=== PATIENT | male | born 1945 | race Caucasian/White ===

== ENCOUNTER 2023-07-12 20:00 | Inpatient (IN) | payer OTHER, SELFPAY ==
[2023-07-12] VITALS (7 sets, daily range): BP systolic 93–149; BP diastolic 47–69; PULSE 77–81; BMI 25.0
[2023-07-12 15:15] LABS: % Basophils 0.4 % (0-2); % Immature Granulocytes 0.6 % (0-0.5); % Lymphocytes 5.8 % (20.5-51.1); % Monocytes 11.6 % (1.7-9.3); % Neutrophils 81.6 % (42.2-75.2); Absolute Immature Granulocytes 0.1 10^3/uL (0-0.05); Absolute Lymphocytes 0.5 10^3/uL (1.2-3.4); Hematocrit 35.8 % (39.0-52.0); Hemoglobin 12.3 g/dL (13.0-18.0); Mean Corp Hgb Conc. 34.4 g/dL (33.0-37.0); Mean Corpuscular Hgb 33.3 pg (27.0-31.0); Mean Platelet Volume 8.9 fL (7.4-10.4); Nucleated Red Blood Cells % 0 % (-); Platelet Count 183 10^3/uL (130-400); Red Blood Cell Count 3.69 10^6/uL (4.70-6.10); Red Cell Dist. Width 14.6 % (11.5-14.5); White Blood Cell Count 8.6 10^3/uL (4.8-10.8)
[2023-07-12 15:23] LABS: Lactic Acid 1.6 mmol/L (0.7-2.0)
[2023-07-12 15:24] LABS: ALT (SGPT) 22 U/L (0-50); AST (SGOT) 38 U/L (17-59); Albumin 3.7 g/dl (3.5-5.0); Alkaline Phosphatase 155 U/L (38-126); Blood Urea Nitrogen 21 mg/dl (9-20); Calcium 9.3 mg/dl (8.4-10.2); Carbon Dioxide 28 mmol/L (22-30); Chloride 103 mmol/L (98-107); Estimated Creatinine Clearance 58 ml/min; Glucose 275 mg/dl (70-99); Sodium 134 mmol/L (135-145); Total Bilirubin 1.5 mg/dl (0.2-1.3); Total Protein 6.2 g/dl (6.3-8.2); eGFR > 60.00
[2023-07-12 15:29] LABS: COVID-19 Antigen Negative (Negative)
[2023-07-12 15:32] LABS: NT-proBNP 251 pg/ml
[2023-07-12] MEDS: TYLENOL 650 MG PO (15:52)
--- NOTE | 2023-07-12 17:06 | ED.GENMED ---
History of Present Illness
<Jocelyn Aponte PA-C - Last Filed: 07/16/23 11:51>
General
Chief Complaint: Weakness
Source: patient and records
Exam Limitations: none
Time Seen by Provider: 07/12/23 15:20
Nursing documentation reviewed up to this point in time: agreed with
Travel History
Have you had any contact with someone who has COVID-19?: No
Do you have any symptoms of coronavirus? Fever > 100 degrees, chills, cough, shortness of breath, sore throat, loss of taste or smell, muscle aches, or headache?: No
History of Present Illness
History of Present Illness:
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
Patient states that he started to feel fatigued the beginning of the week, and as the week progressed, he started to feel weakness, especially with standing, and started to have fevers and chills. He did not take his temperature not sure if he had
a fever at the time. He states that he is also noticed some swelling in his legs, however he has no history of heart failure. His oncologist was concerned about possible blood clots in his legs and wanted him to get an ultrasound done of his lower
extremities. Patient states that he has some coughing, however he always has a dry cough with COPD and denies any sputum production. He also notes some mild shortness of breath but this is his baseline he states. He is not on any oxygen at home
for COPD. Patient states that his appetite has been okay has had had no nausea, vomiting, diarrhea, constipation, abdominal pain.
Past History
<Jocelyn Aponte PA-C - Last Filed: 07/16/23 11:51>
Past History
ED Past Medical History: Cancer, HTN, IDDM and Other (Sarcoma high blood pressure rheumatic fever DM [place]�)
ED Past Surgical History: Appendectomy and Other
Social History
Tobacco: Former smoker
Alcohol: Occasional
Drug: None
Personal:
Living: with family
Employment: Retired
Family History
Family History: Other (CAD, hypertension, diabetes)
Review of Systems
<Jocelyn Aponte PA-C - Last Filed: 07/16/23 11:51>
Review of Systems
All Other Systems: ROS reviewed and negative except as documented in HPI and ROS
Phy Exam
<Jocelyn Aponte PA-C - Last Filed: 07/16/23 11:51>
Physical Exam
Physical Exam:
Vitals: Patient is 85% on room air, patient febrile and tachycardic
General: Patient is ill-appearing
Skin: Skin is hot to the touch, no rashes or lesions
Head: normocephalic, atraumatic
Eyes: PERRLA, EOMs intact.
Neck: no cervical lymphadenopathy
Cardiac: Tachycardia, no murmurs
Peripheral Vascular: no lower extremity edema
Pulm: Increased respiratory effort, increased respiratory rate, scattered wheezes heard on exam
Abdomen: No abdominal tenderness to palpation, no organomegaly
Neuro: CN II-XII intact, AAOx3 .
Course
<Jocelyn Aponte PA-C - Last Filed: 07/16/23 11:51>
Orders/Labs/Results
Orders:
Orders
07/12/23 14:53
Electrocardiogram (*1) Urgent
Reason for Study: Fatigue / Weakness
EKG- Treatment ONCE
07/12/23 14:58
COVID-19 Antigen Urgent
Source: Nasal Swab
Complete Blood Count/With Diff Urgent
Comprehensive Metabolic Panel Urgent
Lactic Acid Urgent
Blood Culture Urgent
[facility] Source: Blood/Venous
Specimen Description:
Influenza A+B Rapid Molecular Urgent
[facility]Y Source: Nasal Swab
Specimen Description:
07/12/23 14:59
Pro-BNP [NT-proBNP] Urgent
07/12/23 15:48
Acetaminophen [Tylenol] 650 mg PO NOW STA
CR Chest - 2 Views Urgent
Comment:
Reason For Exam: shortness of breath, cough
07/12/23 15:52
US Legs, Bilateral [US Periph Venous LOWER Ext Mervin] Urgent
Comment:
Reason For Exam: lower extremeity edema, pain
07/12/23 17:14
Ibuprofen [Motrin] 400 mg PO NOW STA
07/12/23 17:55
Urinalysis Reflex To Culture Urgent
Date Specimen was Collected: 07/12/23
Time Specimen was Collected: 17:54
Urine Microscopic Reflex Cult Urgent
Urine Culture Urgent
[facility] Source: U
Specimen Description:
Date Specimen was Collected: 07/12/23
Time Specimen was Collected: 17:54
07/12/23 18:31
0.9% Sodium Chloride 250 ml [Nss] 250 ml IV BOLUS
Cefepime HCl [Maxipime] 1,000 mg IV NOW STA
07/12/23 18:36
Sterile Water [Sterile Water For Injection] 10 ml .ROUTE .[facility]
07/12/23 18:38
0.9% Sodium Chloride 500 ml [Nss] 500 ml IV BOLUS
07/12/23 19:30
Admit/Transfer Patient As Directed
Co-Sign Provider:
Level of Care: Inpatient admission
Assign to:: Telemetry
Physician / Group: Erasmo
Diagnosis: UTI, Sepsis
Reason for Telemetry: Arrhythmia
Date to Stop Telemetry: 07/15/23
Time to Stop Telemetry: 11:00
Reason for Hospitalization: UTI, Sepsis
Expected length of stay greater than two midnights?: Yes
ELOS- Estimated Length of Stay in days: 3
I certify the patient meets the requirements for IP care: Yes
07/12/23 19:31
Code Status As Directed
Resuscitation Status: Full Code
07/12/23 21:34
0.9% Sodium Chloride 1000 ml [Nss] 1,000 ml IV 125 mls/hr
Acetaminophen [Tylenol] 650 mg PO Q4HPRN PRN
Budesonide [Pulmicort] 0.5 mg INH R BID
Dextrose 50%-Water [Dextrose 50% Syringe] 12.5 grams IV [id number] PRN
Docusate Sodium [Colace] 100 mg PO BID
Glucagon [GlucaGen] 1 mg IM PRN PRN
Ipratropium/Albuterol Sulfate [Duoneb] 3 ml INH R Q4HPRN PRN
Polyethylene Glycol Powder [Miralax] 17 grams PO DAILYPRN PRN
07/12/23 21:34
Activity As Directed
Activity Level: Ambulate
With Assistance
Bedside Glucose Monitoring As Directed
Frequency: AC&HS
Comment: Change to q6h if pt on TPN, tube feeding or not eating
Bladder Scan As Directed
Follow Bladder Retention/Intermittent Cath Algorithm?: Yes
PRN if no void in __ hours: 6
Frequency: Per Retention Algorithm
If Bladder Scan Result >: 400
then:: Straight cath
I/O [Intake/ Output] As Directed
Frequency: Per unit guidelines
Orthostatic Vital Signs As Directed
Orthostatic VS Frequency: BID
Straight Cath As Directed
Frequency: Per Retention Algorithm
Additional Instructions: straight cath as needed per acute urinary retention algorithm for 24 hrs
Additional Instructions: for bladder scan greater than 400 mL
Vital Signs As Directed
Frequency: Per unit guidelines
Oxygen Therapy [O2 Therapy] [RESP] Routine
Titrate/Wean O2 to maintain O2 sat greater than (%): 94
Rx Incentive Spirometry [RESP] Routine
Frequency: q1h while awake
Ot Eval And Treat Routine
PT Consult [Pt Eval And Treat] Routine
Activity Level: Ambulate
With Assistance
DX Deep Vein Thrombosis Video Routine
07/12/23 21:54
Blood Culture Q1M
[facility]Y Source: Blood/Venous
Specimen Description:
07/12/23 22:00
CefTRIAXone [Rocephin] 1,000 mg IV Q24H
Gabapentin [Neurontin] 100 mg PO TID
Sennosides [Senokot] 17.2 mg PO HS
07/12/23 22:58
Blood Culture Q1M
CASEY Source: Blood/Venous
Specimen Description:
07/13/23 Breakfast
2000 calorie (17 carb) Diabetic
At Your Request: Limited Participation
07/13/23 06:14
Basic Metabolic Panel IN AM
Complete Blood Count/No Diff IN AM
Glycohemoglobin (HgbA1c) IN AM
07/13/23 07:30
Insulin Aspart Corrective Low [Novolog Flexpen-Low Resistance] See Protocol SC AC
07/13/23 08:00
Tamsulosin [Flomax] 0.4 mg PO DAILY
07/13/23 18:00
Enoxaparin Sodium [Lovenox] 40 mg SC QPM
07/15/23 11:00
DC Protocol for Telemetry ONCE
Abnormal Lab Results
07/12/23 07/12/23
14:58 17:55
RBC 3.69 L 10^6/uL
(4.70-6.10)
Hgb 12.3 L g/dL
(13.0-18.0)
Hct 35.8 L %
(39.0-52.0)
MCV 97.0 H fL
(80.0-94.0)
MCH 33.3 H pg
(27.0-31.0)
RDW 14.6 H %
(11.5-14.5)
Abs Immat Gran (auto) 0.1 H 10^3/uL
(0-0.05)
Absolute Neuts (auto) 7.0 H 10^3/uL
(1.4-6.5)
Absolute Lymphs (auto) 0.5 L 10^3/uL
(1.2-3.4)
Absolute Monos (auto) 1.0 H 10^3/uL
(0.1-0.6)
Immature Gran % 0.6 H %
(0-0.5)
Neutrophils % 81.6 H %
(42.2-75.2)
Lymphocytes % 5.8 L %
(20.5-51.1)
Monocytes % 11.6 H %
(1.7-9.3)
Sodium 134 L mmol/L
(135-145)
BUN 21 H mg/dl
(9-20)
Glucose 275 H mg/dl
(70-99)
Total Bilirubin 1.5 H mg/dl
(0.2-1.3)
Alkaline Phosphatase 155 H U/L
(38-126)
Total Protein 6.2 L g/dl
(6.3-8.2)
Urine Ketones Trace A
(Negative)
Ur Occult Blood Reflex Trace A
(Negative)
Urine Nitrite (Reflex) Positive A
(Negative)
Leukocyte Esterase Rfl 1+ A
(Negative)
Urine WBC (Reflex) 40-50 A /HPF
(0-5)
Urine Bacteria (Reflex) Many A
(Negative)
Urine Glucose 3+ A
(Negative)
07/12/23 14:58
07/12/23 14:58
Vital Signs
Initial and Last Documented VS:
Initial Vital Signs
Pulse Resp Pulse Ox
113 29 85
07/12/23 14:52 07/12/23 14:52 07/12/23 14:52
Last Documented Vital Signs
Temp Pulse Resp BP Pulse Ox
98 F 74 16 139/69 96
07/16/23 07:48 07/16/23 07:48 07/16/23 07:48 07/16/23 07:48 07/16/23 07:48
<Real Hernandez, DO - Last Filed: 07/17/23 01:17>
Orders/Labs/Results
Orders:
Orders
07/12/23 14:53
Electrocardiogram (*1) Urgent
Reason for Study: Fatigue / Weakness
EKG- Treatment ONCE
07/12/23 14:58
COVID-19 Antigen Urgent
Source: Nasal Swab
Complete Blood Count/With Diff Urgent
Comprehensive Metabolic Panel Urgent
Lactic Acid Urgent
Blood Culture Urgent
[facility]Y Source: Blood/Venous
Specimen Description:
Influenza A+B Rapid Molecular Urgent
CASEY Source: Nasal Swab
Specimen Description:
07/12/23 14:59
Pro-BNP [NT-proBNP] Urgent
07/12/23 15:48
Acetaminophen [Tylenol] 650 mg PO NOW STA
CR Chest - 2 Views Urgent
Comment:
Reason For Exam: shortness of breath, cough
07/12/23 15:52
US Legs, Bilateral [US Periph Venous LOWER Ext Mervin] Urgent
Comment:
Reason For Exam: lower extremeity edema, pain
07/12/23 17:14
Ibuprofen [Motrin] 400 mg PO NOW STA
07/12/23 17:55
Urinalysis Reflex To Culture Urgent
Date Specimen was Collected: 07/12/23
Time Specimen was Collected: 17:54
Urine Microscopic Reflex Cult Urgent
Urine Culture Urgent
CASEY Source: U
Specimen Description:
Date Specimen was Collected: 07/12/23
Time Specimen was Collected: 17:54
07/12/23 18:31
0.9% Sodium Chloride 250 ml [Nss] 250 ml IV BOLUS
Cefepime HCl [Maxipime] 1,000 mg IV NOW STA
07/12/23 18:36
Sterile Water [Sterile Water For Injection] 10 ml .ROUTE .[facility]
07/12/23 18:38
0.9% Sodium Chloride 500 ml [Nss] 500 ml IV BOLUS
07/12/23 19:30
Admit/Transfer Patient As Directed
Co-Sign Provider:
Level of Care: Inpatient admission
Assign to:: Telemetry
Physician / Group: Erasmo
Diagnosis: UTI, Sepsis
Reason for Telemetry: Arrhythmia
Date to Stop Telemetry: 07/15/23
Time to Stop Telemetry: 11:00
Reason for Hospitalization: UTI, Sepsis
Expected length of stay greater than two midnights?: Yes
ELOS- Estimated Length of Stay in days: 3
I certify the patient meets the requirements for IP care: Yes
07/12/23 19:31
Code Status As Directed
Resuscitation Status: Full Code
07/12/23 21:34
0.9% Sodium Chloride 1000 ml [Nss] 1,000 ml IV 125 mls/hr
Acetaminophen [Tylenol] 650 mg PO Q4HPRN PRN
Budesonide [Pulmicort] 0.5 mg INH R BID
Dextrose 50%-Water [Dextrose 50% Syringe] 12.5 grams IV [id number] PRN
Docusate Sodium [Colace] 100 mg PO BID
Glucagon [GlucaGen] 1 mg IM PRN PRN
Ipratropium/Albuterol Sulfate [Duoneb] 3 ml INH R Q4HPRN PRN
Polyethylene Glycol Powder [Miralax] 17 grams PO DAILYPRN PRN
07/12/23 21:34
Activity As Directed
Activity Level: Ambulate
With Assistance
Bedside Glucose Monitoring As Directed
Frequency: AC&HS
Comment: Change to q6h if pt on TPN, tube feeding or not eating
Bladder Scan As Directed
Follow Bladder Retention/Intermittent Cath Algorithm?: Yes
PRN if no void in __ hours: 6
Frequency: Per Retention Algorithm
If Bladder Scan Result >: 400
then:: Straight cath
I/O [Intake/ Output] As Directed
Frequency: Per unit guidelines
Orthostatic Vital Signs As Directed
Orthostatic VS Frequency: BID
Straight Cath As Directed
Frequency: Per Retention Algorithm
Additional Instructions: straight cath as needed per acute urinary retention algorithm for 24 hrs
Additional Instructions: for bladder scan greater than 400 mL
Vital Signs As Directed
Frequency: Per unit guidelines
Oxygen Therapy [O2 Therapy] [RESP] Routine
Titrate/Wean O2 to maintain O2 sat greater than (%): 94
Rx Incentive Spirometry [RESP] Routine
Frequency: q1h while awake
Ot Eval And Treat Routine
PT Consult [Pt Eval And Treat] Routine
Activity Level: Ambulate
With Assistance
DX Deep Vein Thrombosis Video Routine
07/12/23 21:54
Blood Culture Q1M
[facility] Source: Blood/Venous
Specimen Description:
07/12/23 22:00
CefTRIAXone [Rocephin] 1,000 mg IV Q24H
Gabapentin [Neurontin] 100 mg PO TID
Sennosides [Senokot] 17.2 mg PO HS
07/12/23 22:58
Blood Culture Q1M
[facility]Y Source: Blood/Venous
Specimen Description:
07/13/23 Breakfast
2000 calorie (17 carb) Diabetic
At Your Request: Limited Participation
07/13/23 06:14
Basic Metabolic Panel IN AM
Complete Blood Count/No Diff IN AM
Glycohemoglobin (HgbA1c) IN AM
07/13/23 07:30
Insulin Aspart Corrective Low [Novolog Flexpen-Low Resistance] See Protocol SC AC
07/13/23 08:00
Tamsulosin [Flomax] 0.4 mg PO DAILY
07/13/23 18:00
Enoxaparin Sodium [Lovenox] 40 mg SC QPM
07/15/23 11:00
DC Protocol for Telemetry ONCE
Abnormal Lab Results
07/12/23 07/12/23
14:58 17:55
RBC 3.69 L 10^6/uL
(4.70-6.10)
Hgb 12.3 L g/dL
(13.0-18.0)
Hct 35.8 L %
(39.0-52.0)
MCV 97.0 H fL
(80.0-94.0)
MCH 33.3 H pg
(27.0-31.0)
RDW 14.6 H %
(11.5-14.5)
Abs Immat Gran (auto) 0.1 H 10^3/uL
(0-0.05)
Absolute Neuts (auto) 7.0 H 10^3/uL
(1.4-6.5)
Absolute Lymphs (auto) 0.5 L 10^3/uL
(1.2-3.4)
Absolute Monos (auto) 1.0 H 10^3/uL
(0.1-0.6)
Immature Gran % 0.6 H %
(0-0.5)
Neutrophils % 81.6 H %
(42.2-75.2)
Lymphocytes % 5.8 L %
(20.5-51.1)
Monocytes % 11.6 H %
(1.7-9.3)
Sodium 134 L mmol/L
(135-145)
BUN 21 H mg/dl
(9-20)
Glucose 275 H mg/dl
(70-99)
Total Bilirubin 1.5 H mg/dl
(0.2-1.3)
Alkaline Phosphatase 155 H U/L
(38-126)
Total Protein 6.2 L g/dl
(6.3-8.2)
Urine Ketones Trace A
(Negative)
Ur Occult Blood Reflex Trace A
(Negative)
Urine Nitrite (Reflex) Positive A
(Negative)
Leukocyte Esterase Rfl 1+ A
(Negative)
Urine WBC (Reflex) 40-50 A /HPF
(0-5)
Urine Bacteria (Reflex) Many A
(Negative)
Urine Glucose 3+ A
(Negative)
07/12/23 14:58
07/12/23 14:58
Vital Signs
Initial and Last Documented VS:
Initial Vital Signs
Pulse Resp Pulse Ox
113 29 85
07/12/23 14:52 07/12/23 14:52 07/12/23 14:52
Last Documented Vital Signs
Temp Pulse Resp BP Pulse Ox
98 F 74 16 139/69 96
07/16/23 07:48 07/16/23 07:48 07/16/23 07:48 07/16/23 07:48 07/16/23 07:48
<Jocelyn Aponte PA-C - Last Filed: 07/16/23 11:51>
MDM/Problems Addressed
Differential Diagnosis Includes:
Differentials include COPD exacerbation, CHF, pneumonia, influenza, COVID-19, pulmonary embolism
MDM/Problems Addressed:
hypoxia
weakness
fever
Chronic conditions affecting care: DM, HTN, COPD and Cancer
Acute Exacerbation and/or Progression of Chronic Illness: HTN and COPD
<Jocelyn Aponte PA-C - Last Filed: 07/16/23 11:51>
*Radiology
Radiology exam reviewed: preliminary read by ED provider (no acute cardiopulmonary process)
*Pulse Oximetry
Patient hypoxic: yes
*Speech And Language Assistant Interpretation
Rate: normal
Interpretation: normal
Heart Rate: 101
Rhythm: sinus tachycardia
*Critical Care Note
Total Time (30-74mins, 75-104mins- exclusive of procedures): Not Applicable
Data Reviewed
Review of Other/Old Records Reveals: Records (Reviewed ER physician documentation, 04/11/2022, 04/15/2023) and Discharge Summary (Reviewed hospital discharge summary from 04/20/2023)
Source: patient and records
Further Testing Considered But Not Given:
Considered CT scan of the abdomen however patient has no abdominal tenderness
<Jocelyn Aponte PA-C - Last Filed: 07/16/23 11:51>
Patient Management
Escalation/DeEscalation of care consider admission/obs:
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 Patient states
that he started to feel fatigued the beginning of the week, and as the week progressed, he started to feel weakness, especially with standing, and started to have fevers and chills. Upon presentation emergency department, patient is hypoxic to 85%
on room air, 95% on 2 L oxygen. On exam, patient is ill-appearing, his skin is hot to the touch, and he is tachypnea and tachycardia and is febrile. His chest x-ray does not show any evidence of pneumonia, his ultrasound lower extremities is
negative for DVT, his CBC is not show a leukocytosis, his CMP is unremarkable. He tested negative for COVID and flu. His lactic acid is not elevated, and his kidney function is normal. We treated his fever with Tylenol, upon reevaluation, patient
feels a lot better, however his fever is elevated to 103. We gave him ibuprofen in addition to try to help control his fever, at this time we have no clear etiology of his fever, we will obtain urinalysis as patient mentioned burning with urination
upon reevaluation.
His urinalysis reveals a UTI. Will start IV fluids and cefepime. Will plan to admit to hospital service.
<Jocelyn Aponte PA-C - Last Filed: 07/16/23 11:51>
Update Note
Update Note:
5:06 pm--on reevaluation, patient reports that he feels better than earlier, however now his fever is higher at 103 even after Tylenol. Will give Motrin for fever control and will add on urinalysis as etiology of fever unclear at this time.
ED Attending Note
<Jocelyn Aponte PA-C - Last Filed: 07/16/23 11:51>
-
Portions of this chart may have been created with voice recognition software.� Occasional wrong word or��sound alike� substitutions may have occurred due to the inherent limitations of voice recognition software.
<Real Hernandez DO - Last Filed: 07/17/23 01:17>
ED Attending Note
Patient seen and examined by attending physician: Yes
I performed a history and physical exam of patient and discussed management with resident, I reviewed resident's note and agree with documented findings and plan of care.: Yes
ED Attending Note:
I have reviewed and agree with history and treatment plan by Jocelyn Aponte. My exam reveals 77-year-old male, ill-appearing, febrile, clear lungs, soft abdomen, no neurologic deficits. Admit for fever, UTI.
Discharge Plan
Departure
Patient Disposition: Admit
Date of Disposition: 07/12/23
Time of Disposition: 18:51
Presentation/result/management discussed w/ accepting MD/DO: Hospitalist
Patient with high blood pressure during this ER visit?: Yes
Condition: Fair
Discharge Problem:
Urinary tract infection, Hypoxia
Interventions
Interventions:
*Risk Screen - Suicide Last Done: 07/12/23 14:54
*General Assessment Last Done: 07/12/23 14:54
*Neglect/Abuse Screening Last Done: 07/12/23 14:54
ED- Fall Risk Assessment Last Done: 07/12/23 21:22
*ED COVID-19 Vaccine History Last Done: 07/12/23 22:48
*Nursing Disposition Last Done: 07/12/23 21:22
ED- Cardiac Assessment Last Done: 07/12/23 14:55
ED- Neurological Assessment Last Done: 07/12/23 14:55
ED- Pulmonary Assessment Last Done: 07/12/23 14:55
Discharge Date and Time
Discharge Date/Time: 07/12/23 21:36
[2023-07-12] MEDS: MOTRIN 400 MG PO (17:29)
[2023-07-12 18:08] LABS: Urine Albumin Trace (Neg - Trace); Urine Bilirubin Negative (Negative); Urine Character Clear (Clear); Urine Color Yellow; Urine Glucose 3+ (Negative); Urine Ketone Trace (Negative); Urine Leukocyte 1+ (Negative); Urine Nitrite Positive (Negative); Urine Occult Blood Trace (Negative); Urine Urobilinogen Negative (Neg - 1+)
[2023-07-12 18:31] LABS: Urine Squamous Cell 0-2 /LPF (Few)
[2023-07-12 18:33] LABS: Urine Red Blood Cell 0-2 /HPF (0-2)
[2023-07-12 18:34] LABS: Urine Bacteria Many (Negative); Urine White Cell 40-50 /HPF (0-5)
[2023-07-12] MEDS: NSS 500 IV (18:38)
[2023-07-12] MEDS: MAXIPIME 1000 MG IV (18:38)
--- NOTE | 2023-07-12 19:38 | HPS.HSE ---
Family Physician
-
Family Physician: Rama Huff
Chief Complaint
-
Urinary Symptoms
History of Present Illness
Patient is a 77y M with PMH significant for liposarcoma, HTN and COPD who presents to ED complaining of urinary symptoms. Patient reports two days of urinary frequency and incontinence. He notes very frequent, small volume urination.
Occasional dysuria. Pos subjective fevers, malaise and shaking chills. No N/V/D. Has not moved his bowels in two days - which is not very unusual for him. No other current complaints or concerns.
No specific SOB, change in chronic cough, etc.
Patient is on chemotherapy at [facility]. His next treatment is due this on a 28 day cycle. He does not recall the name of his chemo agent(s).
Medical History
Past Medical History
Past Medical History: Reports Other
Additional Past Medical History:
Liposarcoma
Hypertension
COPD
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
DM-II
Rheumatic Fever (childhood)
Past Surgical History: Reports Other
Additional Past Surgical History:
Liposarcoma excisions (L buttock, L lower ribs)
Appendectomy
Social History
Tobacco: Former Smoker (Quit smoking about 20 years ago. Approx 30 pack years total use.)
Alcohol: None
Drug: None
Family History
Family History: Not pertinent
Allergies / Home Medications
Allergies reflects when Allergies were last updated in [employer].
Home Medications with original date entered in [employer]
Allergy/Medication List:
Allergies
Allergy/AdvReac Type Severity Reaction Status Date / Time
Influenza Virus Vaccines Allergy Rash Verified 04/11/22 01:12
Penicillins Allergy Rash Verified 04/11/22 01:12
Home Medications
acetaminophen 500 mg tablet (Tylenol Extra Strength) 500 mg PO DAILYPRN PRN mild pain 04/15/23
albuterol sulfate 2.5 mg/3 mL (0.083 %) solution for nebulization 2.5 mg inhalation R Q4HPRN PRN sob 04/15/23
albuterol sulfate 90 mcg/actuation aerosol inhaler 2 puff inhalation R Q4HPRN PRN sob 04/15/23
amlodipine 2.5 mg tablet 2.5 mg PO DAILY 04/15/23
bisacodyl 5 mg tablet,delayed release (Dulcolax (bisacodyl)) 5 mg PO DAILYPRN PRN constipation 04/15/23
carboxymethylcellulose sodium 0.5 % eye drops 1 drp BOTH EYES QIDPRN PRN dry eyes 04/15/23
fluticasone fur. 100 mcg-umeclid 62.5 mcg-vilant 25 mcg inhalat.powder (Trelegy Ellipta) 1 inh inhalation R BID 04/15/23
gabapentin 100 mg capsule 100 mg PO TID 04/15/23
insulin aspart U-100 100 unit/mL (3 mL) subcutaneous pen (Novolog FlexPen U-100 Insulin aspart) 0 - 16 sliding scale dose SC AC 04/15/23
insulin detemir U-100 100 unit/mL (3 mL) subcutaneous pen (Levemir FlexPen) 14 unit SC HS 04/15/23
valsartan 80 mg tablet 80 mg PO DAILY 04/15/23
vit C 250 mg-vit E 90 mg-zinc 40 mg-copper 1 [id number] capsule (PreserVision AREDS-2) 1 tab PO BID 04/15/23
Review of Systems
-
History Source: Patient
A 12 point ROS was completed and negative except as noted: Yes
Constitutional: Reports Fever, Fatigue and Chills
EENT: Denies Sore Throat
Respiratory: Reports Cough (chronic / unchanged); Denies Hemoptysis or Trouble Breathing
Cardiac: Reports Diaphoresis; Denies Chest Pain or Palpitations
Abdomen/GI: Denies Abdominal Pain, Nausea, Vomiting or Diarrhea
: Reports Dysuria, Frequency and Incontinence; Denies Flank Pain or Bleeding
Musculoskeletal: Reports Edema; Denies Joint Pain
Neurological: Denies Dizzy or Headache
Psych: Denies Depression or Anxiety
Physical Exam
Vital Signs
Vital Signs
Temp Pulse Resp BP Pulse Ox
103 F H 104 25 137/58 92
07/12/23 17:05 07/12/23 17:45 07/12/23 17:45 07/12/23 17:03 07/12/23 17:45
Physical Exam
General: Other (77y M in mild distress.)
HEENT: Moist mucous membranes and PERRLA
Respiratory: Other (Decreased throughout. Otherwise clear. No W/R/R)
Cardiac: S1/S2 and Regular Rhythm; No Murmur
GI: Soft, Non Distended, Normal Bowel Sounds and Other (Pos tenderness R abdomen and suprapubic regions. No rebound or guarding. Pos BS.)
Musculoskeletal: No Clubbing, No Cyanosis and Other (Trace pedal edema bilaterally.)
Neuro: AO x 3
Laboratory Results
-
07/12/23 14:58
07/12/23 14:58
Laboratory Results
Lactic Acid 1.6 mmol/L (0.7-2.0) 07/12/23 14:58
Total Bilirubin 1.5 mg/dl (0.2-1.3) H 07/12/23 14:58
AST 38 U/L (17-59) 07/12/23 14:58
ALT 22 U/L (0-50) 07/12/23 14:58
Alkaline Phosphatase 155 U/L (38-126) H 07/12/23 14:58
Impression/Plan
-
A/P: Patient is a 77y M with PMH significant for liposarcoma on chemotherapy who presents to ED complaining of fevers / chills and urinary symptoms.
UTI
Sepsis secondary to the above
- Admit for further evaluation and treatment.
- Patient presents with fever, tachycardia, tachypnea and UA / symptoms indicative of UTI.
- IV abx with ceftriaxone pending culture data.
- Supportive care including IVFs, antipyretics, etc.
- Follow for clinical improvement.
- Follow bladder scan and cath if necessary.
- Begin tamsulosin.
- Check renal / bladder US in AM.
Liposarcoma
- s/p 2 separate excisions and currently maintained on chemotherapy managed at [place].
- Last treatment was almost 28 days ago (next due this ).
- Hold chemo acutely given sepsis / infection.
- Follow-up with [facility] after discharge.
Benign Hypertension
- BP on the lower side in the ED - likely secondary to sepsis.
- IVF support as noted above.
- Hold antihypertensive medications acutely and resume when appropriate.
DM-II
- Stable. Continua basal : bolus insulin regimen.
- SSI coverage as needed.
- Update A1C.
COPD without Acute Exacerbation
- No wheezing on exam. No significant cough. CXR is unremarkable.
- Continue inhaled medications and follow for any changes.
Hypoxemic Respiratory Insufficiency
- Noted to be hypoxemic in the ED and not on chronic home O2.
- Unclear etiology - perhaps related to atelectasis / sepsis / etc.
- Continue supplemental O2 and follow for changes.
- No evidence of COPD exac, acute pulmonary infection, etc.
DVT Prophylaxis: Lovenox
Code Status: Full
[2023-07-12 21:49] LABS: Glucose - Point of Care 312 mg/dl (70-99)
[2023-07-12] MEDS: PULMICORT INH (22:11)
[2023-07-12] MEDS: NSS 1000 IV (22:11)
[2023-07-12] MEDS: NEURONTIN 100 MG PO (22:15)
[2023-07-12] MEDS: ROCEPHIN 1000 MG IV (22:15)
[2023-07-12] MEDS: STERILE WATER FOR INJECTION 10 ML IV (22:16)
[2023-07-12] MEDS: LEVEMIR 0.100000000000000006 UNITS SC (22:16)
[2023-07-12] MEDS: COLACE 100 MG PO (22:16)
[2023-07-12] MEDS: SENOKOT 17.1999999999999993 MG PO (22:17)
[2023-07-13] VITALS (9 sets, daily range): BP systolic 99–130; BP diastolic 47–64; PULSE 26–87; O2SAT 94
[2023-07-13] MEDS: NSS 1000 IV ×3 (05:55→22:01)
[2023-07-13 06:34] LABS: Hematocrit 30.9 % (39.0-52.0); Hemoglobin 10.8 g/dL (13.0-18.0); Mean Corpuscular Hgb 32.8 pg (27.0-31.0); Mean Corpuscular Volume 93.9 fL (80.0-94.0); Mean Platelet Volume 9.3 fL (7.4-10.4); Platelet Count 146 10^3/uL (130-400); Red Blood Cell Count 3.29 10^6/uL (4.70-6.10); Red Cell Dist. Width 14.7 % (11.5-14.5); White Blood Cell Count 9.8 10^3/uL (4.8-10.8)
[2023-07-13 07:47] LABS: Blood Urea Nitrogen 26 mg/dl (9-20); Calcium 8.7 mg/dl (8.4-10.2); Carbon Dioxide 26 mmol/L (22-30); Chloride 108 mmol/L (98-107); Estimated Creatinine Clearance 64 ml/min; Glucose 102 mg/dl (70-99); Potassium 3.9 mmol/L (3.5-5.1); Sodium 138 mmol/L (135-145); eGFR > 60.00
[2023-07-13] MEDS: NEURONTIN 100 MG PO ×3 (07:53→21:22)
[2023-07-13] MEDS: FLOMAX 0.400000000000000022 MG PO (07:53)
[2023-07-13] MEDS: NOVOLOG FLEXPEN-LOW RESISTANCE SC ×2 (07:53→13:06)
[2023-07-13] MEDS: TYLENOL 650 MG PO ×2 (07:53→14:10)
[2023-07-13] MEDS: COLACE 100 MG PO ×2 (07:53→21:21)
[2023-07-13 07:54] LABS: Glucose - Point of Care 111 mg/dl (70-99)
--- NOTE | 2023-07-13 08:17 | W.PN.HOSP.TC ---
Today's Communication/Plan
-
Continue IV antibiotics and IV fluids. Follow-up cultures.
Assessment / Plan
Assessment / Plan
Physical Exam
General: Other (77y M in mild distress.)
HEENT: Moist mucous membranes and PERRLA
Respiratory: Other (Decreased throughout.� Otherwise clear.� No W/R/R)
Cardiac: S1/S2 and Regular Rhythm; No Murmur
GI: Soft, Non Distended, Normal Bowel Sounds and Other (Pos tenderness R abdomen and suprapubic regions.� No rebound or guarding.� Pos BS.)
Musculoskeletal: No Clubbing, No Cyanosis and Other (Trace pedal edema bilaterally.)
Neuro: AO x 3
A/P:
UTI
Sepsis secondary to the above
�- Patient presents with fever, tachycardia, tachypnea and UA / symptoms indicative of UTI.
�- IV abx with ceftriaxone pending culture data.
�- Supportive care including IVFs, antipyretics, etc.
�- Follow for clinical improvement.
�- Follow bladder scan and cath if necessary.
�- Begin tamsulosin.
�- Check renal / bladder US in AM.
Liposarcoma
�- s/p 2 separate excisions and currently maintained on chemotherapy managed at [place].
�- Last treatment was almost 28 days ago (next due this ).
�- Hold chemo acutely given sepsis / infection. He tells me the chemotherapy this week but depends on his recovery from acute infection.
�- Follow-up with [facility] after discharge.
Benign Hypertension
�- BP on the lower side in the ED - likely secondary to sepsis.
�- IVF support as noted above.
�- Hold antihypertensive medications acutely and resume when appropriate.
DM-II
�- Stable.� Continua basal : bolus insulin regimen.
�- SSI coverage as needed.
�- Update A1C.
COPD without Acute Exacerbation
�- No wheezing on exam.� No significant cough.� CXR is unremarkable.
�- Continue inhaled medications and follow for any changes.
Hypoxemic Respiratory Insufficiency
�- Noted to be hypoxemic in the ED and not on chronic home O2.
�- Unclear etiology - perhaps related to atelectasis / sepsis / etc.
�- Continue supplemental O2 and follow for changes.
�- No evidence of COPD exac, acute pulmonary infection, etc.
DVT Prophylaxis:� Lovenox
Code Status:� Full
Anticipated Discharge: 24 - 48 hours
Subjective/Interval History
-
Date of Service: July 13, 2023
Patient has some generalized weakness. Blood pressure improved. No shortness of breath. Afebrile
Objective Data
-
Labs:
Laboratory Results
07/13/23
06:14
WBC 9.8
Hgb 10.8 L
Hct 30.9 L
Plt Count 146 D
Sodium 138
Potassium 3.9
Chloride 108 H
Carbon Dioxide 26
BUN 26 H
Creatinine 0.9
Glucose 102 H
Calcium 8.7
Vital Signs:
Vital Signs
Temp Pulse Resp BP Pulse Ox
100.7 F H 88 17 112/47 95
07/13/23 07:36 07/13/23 07:36 07/13/23 07:36 07/13/23 07:36 07/13/23 07:36
I&O
07/12/23 07/13/23 07/14/23
06:59 06:59 06:59
Intake Total 240 / 240
Balance 240 / 240
Review of Systems
-
All other systems: Reviewed and negative
[2023-07-13] MEDS: DUONEB 3 ML INH ×2 (08:21→20:49)
[2023-07-13] MEDS: PULMICORT 0.5 MG INH ×2 (08:21→20:49)
--- NOTE | 2023-07-13 11:09 | PTOTSP ---
Pt is indep in room for ADLs and functional mobility/transfer with IV pole. Pt appears at or close to baseline. No skilled OT needs in-house. Will DC from OT caseload.
[2023-07-13 12:00] LABS: Glucose - Point of Care 106 mg/dl (70-99)
--- NOTE | 2023-07-13 14:16 | CM ---
Reviewed chart, spoke with patient's by phone. Patient's stated that patient lives with her in a two story home with 3 steps to enter. She described him as independent with ADLs, personal care, dressing and bathing. He ambulates without
device.
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
She denied any DME in the home.
He has had VN in the past through .
He has never been to a SNF in the past.
Patient has a prescription plan and uses [facility] for all of his medications.
His PCP is Rama Cam
Per PT notes patient is doing well and appears to be at baseline. Most likely patient will return home with no needs.
[2023-07-13] MEDS: LOVENOX 40 MG SC (17:48)
[2023-07-13] MEDS: NOVOLOG FLEXPEN-LOW RESISTANCE 2 UNITS SC (17:51)
[2023-07-13 17:59] LABS: Glucose - Point of Care 216 mg/dl (70-99)
[2023-07-13 21:18] LABS: Glucose - Point of Care 226 mg/dl (70-99)
[2023-07-13] MEDS: SENOKOT 17.1999999999999993 MG PO (21:22)
[2023-07-13] MEDS: LEVEMIR 0.100000000000000006 UNITS SC (21:22)
[2023-07-13] MEDS: STERILE WATER FOR INJECTION 10 ML IV (21:23)
[2023-07-13] MEDS: ROCEPHIN 1000 MG IV (21:23)
[2023-07-14 03:30] VITALS: BP 102/41
[2023-07-14] MEDS: NSS 1000 IV (05:58)
[2023-07-14 07:00] VITALS: BP 130/64; BP 130/65; BP 134/73; PULSE 97; PULSE 98
[2023-07-14 07:09] LABS: % Basophils 0.5 % (0-2); % Eosinophils 0.9 % (0-6); % Immature Granulocytes 0.9 % (0-0.5); % Lymphocytes 5.3 % (20.5-51.1); % Monocytes 17.2 % (1.7-9.3); % Neutrophils 75.2 % (42.2-75.2); Absolute Eosinophils 0.1 10^3/uL (0-0.7); Absolute Immature Granulocytes 0.1 10^3/uL (0-0.05); Absolute Lymphocytes 0.4 10^3/uL (1.2-3.4); Absolute Monocytes 1.3 10^3/uL (0.1-0.6); Absolute Neutrophils 5.8 10^3/uL (1.4-6.5); Hematocrit 28.7 % (39.0-52.0); Hemoglobin 10.1 g/dL (13.0-18.0); Mean Corp Hgb Conc. 35.2 g/dL (33.0-37.0); Mean Corpuscular Hgb 33.7 pg (27.0-31.0); Mean Corpuscular Volume 95.7 fL (80.0-94.0); Mean Platelet Volume 10.1 fL (7.4-10.4); Nucleated Red Blood Cells % 0 % (-); Platelet Count 110 10^3/uL (130-400); Red Cell Dist. Width 14.7 % (11.5-14.5); White Blood Cell Count 7.7 10^3/uL (4.8-10.8)
[2023-07-14] MEDS: DUONEB 3 ML INH (07:11)
[2023-07-14] MEDS: PULMICORT 0.5 MG INH ×2 (07:11→19:25)
[2023-07-14 07:21] LABS: Blood Urea Nitrogen 27 mg/dl (9-20); Calcium 8.1 mg/dl (8.4-10.2); Carbon Dioxide 22 mmol/L (22-30); Chloride 110 mmol/L (98-107); Estimated Creatinine Clearance 64 ml/min; Glucose 99 mg/dl (70-99); Potassium 3.6 mmol/L (3.5-5.1); Sodium 137 mmol/L (135-145); eGFR > 60.00
--- NOTE | 2023-07-14 07:34 | W.PN.HOSP.TC ---
Today's Communication/Plan
-
Continue IV antibiotics. IV steroids and IV Lasix. Obtain chest x-ray
Assessment / Plan
Assessment / Plan
Physical Exam
General: Other (77y M in mild distress.)
HEENT: Moist mucous membranes and PERRLA
Respiratory: Other (Decreased throughout.� Few rhonchi and crackles)
Cardiac: S1/S2 and Regular Rhythm; No Murmur
GI: Soft, Non Distended, Normal Bowel Sounds and Other (Pos tenderness R abdomen and suprapubic regions.� No rebound or guarding.� Pos BS.)
Musculoskeletal: No Clubbing, No Cyanosis and Other (Trace pedal edema bilaterally.)
Neuro: AO x 3
A/P:
UTI
Sepsis secondary to the above
�- Patient presents with fever, tachycardia, tachypnea and UA / symptoms indicative of UTI. WBC 7.7
�- IV abx with ceftriaxone pending culture data. Urine culture with gram-negative bacilli
�-Stopped IV fluids on 07/13
�- Follow for clinical improvement.
�- Follow bladder scan and cath if necessary.
�-Continue tamsulosin.
�- Checked renal / bladder US
-Updated daughter over the phone today, Carmella
Shortness of breath likely related to mild volume overload due to IV fluid, acute diastolic congestive heart failure and COPD exacerbation
-Obtain a chest x-ray today
-Lasix 40 mg IV x 1
-Off IV fluids
-Start IV steroids, DEXA 4 mg IV every 8 hours with hopefully quick taper
Liposarcoma
�- s/p 2 separate excisions and currently maintained on chemotherapy managed at [place].
�- Last treatment was almost 28 days ago (next due this ).
�- Hold chemo acutely given sepsis / infection. He tells me the chemotherapy this week but needs to be postponed until recovery from acute infection.
�- Follow-up with [facility] after discharge.
Benign Hypertension
�- BP on the lower side in the ED - likely secondary to sepsis.
�- IVF support as noted above. Stopped IV fluids and monitor blood pressure
�- Hold antihypertensive medications acutely and resume when appropriate, hopefully over the next 24 hours.
DM-II
�- Stable.� Continua basal : bolus insulin regimen.
�- SSI coverage as needed.
�- Update A1C.
COPD without Acute Exacerbation
�- No wheezing on exam.� No significant cough.� CXR is unremarkable.
�- Continue inhaled medications and follow for any changes.
Hypoxemic Respiratory Insufficiency
�- Noted to be hypoxemic in the ED and not on chronic home O2.
�- Unclear etiology - perhaps related to atelectasis / sepsis / etc.
�- Continue supplemental O2 and follow for changes.
�- No evidence of COPD exac, acute pulmonary infection, etc.
DVT Prophylaxis:� Lovenox
Code Status:� Full
Total time spent on today's encounter was 52 minutes which included time spent in counseling the patient/family regarding diagnosis and treatment plan as listed above, goals of care, and symptom management. Case was discussed with nursing staff,
specialists, and care coordinators/case management. All labs and imaging personally reviewed by me. Remainder the time spent in detailed review of previous records, lab data, imaging, and other medical provider documentation.
Anticipated Discharge: 24 - 48 hours
Subjective/Interval History
-
Date of Service: July 14, 2023
Patient feels more short of breath today, increased cough. No chest pain. Afebrile
Objective Data
-
Labs:
Laboratory Results
07/14/23
06:26
WBC 7.7
Hgb 10.1 L
Hct 28.7 L
Plt Count 110 L D
Sodium 137
Potassium 3.6
Chloride 110 H
Carbon Dioxide 22
BUN 27 H
Creatinine 0.9
Glucose 99
Calcium 8.1 L
Vital Signs:
Vital Signs
Temp Pulse Resp BP Pulse Ox
98.1 F 75 16 102/41 95
07/14/23 03:30 07/14/23 07:11 07/14/23 07:11 07/14/23 03:30 07/14/23 07:11
I&O
07/13/23 07/14/23 07/15/23
06:59 06:59 06:59
Intake Total 240 / 240 2159 / 2159
Output Total 100 / 100
Balance 240 / 240 2059
Review of Systems
-
All other systems: Reviewed and negative
[2023-07-14 08:10] LABS: Glucose - Point of Care 91 mg/dl (70-99)
[2023-07-14] MEDS: NOVOLOG FLEXPEN-LOW RESISTANCE SC (09:10)
[2023-07-14 10:41] VITALS: BP 128/65
[2023-07-14] MEDS: COLACE 100 MG PO ×2 (10:47→21:48)
[2023-07-14] MEDS: NEURONTIN 100 MG PO ×3 (10:47→21:48)
[2023-07-14] MEDS: DECADRON 4 MG IV ×2 (10:47→21:47)
[2023-07-14] MEDS: FLOMAX 0.400000000000000022 MG PO (10:47)
[2023-07-14] MEDS: LASIX 40 MG IV (10:48)
[2023-07-14 12:25] LABS: Glucose - Point of Care 210 mg/dl (70-99)
[2023-07-14 12:29] LABS: Glucose - Point of Care 168 mg/dl (70-99)
[2023-07-14] MEDS: NOVOLOG FLEXPEN-LOW RESISTANCE 1 UNITS SC ×2 (12:42→17:18)
[2023-07-14 15:00] VITALS: BP 147/69
[2023-07-14 16:15] LABS: Glucose - Point of Care 183 mg/dl (70-99)
[2023-07-14] MEDS: LOVENOX 40 MG SC (17:18)
[2023-07-14 19:17] VITALS: BP 143/78
[2023-07-14] MEDS: STERILE WATER FOR INJECTION 10 ML IV (21:48)
[2023-07-14] MEDS: ROCEPHIN 1000 MG IV (21:48)
[2023-07-14] MEDS: SENOKOT 17.1999999999999993 MG PO (21:48)
[2023-07-14] MEDS: LEVEMIR 0.100000000000000006 UNITS SC (21:54)
[2023-07-14 21:55] LABS: Glucose - Point of Care 289 mg/dl (70-99)
[2023-07-14 23:10] VITALS: BP 128/69
[2023-07-15] MEDS: DECADRON 4 MG IV (03:46)
[2023-07-15 03:55] VITALS: BP 139/69
[2023-07-15 04:02] LABS: Glucose - Point of Care 206 mg/dl (70-99)
[2023-07-15 07:00] VITALS: BP 162/85
[2023-07-15] MEDS: PULMICORT 0.5 MG INH ×2 (07:02→19:05)
[2023-07-15] MEDS: DUONEB 3 ML INH ×2 (07:02→19:05)
[2023-07-15 07:27] LABS: Calcium 8.5 mg/dl (8.4-10.2); Glucose 203 mg/dl (70-99); Potassium 4.1 mmol/L (3.5-5.1); Sodium 135 mmol/L (135-145)
[2023-07-15 07:38] LABS: Blood Urea Nitrogen 30 mg/dl (9-20); Carbon Dioxide 25 mmol/L (22-30); Chloride 106 mmol/L (98-107); Estimated Creatinine Clearance 72 ml/min; eGFR > 60.00
[2023-07-15 08:05] LABS: Glucose - Point of Care 216 mg/dl (70-99)
--- NOTE | 2023-07-15 08:09 | W.PN.HOSP.TC ---
Today's Communication/Plan
-
Continue IV antibiotics, oral steroids.
Assessment / Plan
Assessment / Plan
Physical Exam
General: Other (77y M in mild distress.)
HEENT: Moist mucous membranes and PERRLA
Respiratory: Other (Decreased throughout.� Few rhonchi and crackles)
Cardiac: S1/S2 and Regular Rhythm; No Murmur
GI: Soft, Non Distended, Normal Bowel Sounds and Other (Pos tenderness R abdomen and suprapubic regions.� No rebound or guarding.� Pos BS.)
Musculoskeletal: No Clubbing, No Cyanosis and Other (Trace pedal edema bilaterally.)
Neuro: AO x 3
A/P:
UTI
Sepsis secondary to the above
�- Patient presents with fever, tachycardia, tachypnea and UA / symptoms indicative of UTI. WBC 7.7 last time.
�- IV abx with ceftriaxone for 1 more day. Urine culture with Klebsiella pneumonia.
�-Stopped IV fluids on 07/13
�- Follow for clinical improvement.
�- Follow bladder scan and cath if necessary.
�-Continue tamsulosin.
�- Checked renal / bladder US
-Updated daughter over the phone yesterday, Carmella
Shortness of breath likely related to mild volume overload due to IV fluid, acute diastolic congestive heart failure and COPD exacerbation
-Obtain a chest x-ray today--> reviewed chest x-ray.
-Lasix 40 mg IV x 1 yesterday.
-Off IV fluids
-Switch IV steroids to oral steroids today
Liposarcoma
�- s/p 2 separate excisions and currently maintained on chemotherapy managed at [place].
�- Last treatment was almost 28 days ago (next due this ).
�- Hold chemo acutely given sepsis / infection. He tells me the chemotherapy this week but needs to be postponed until recovery from acute infection.
�- Follow-up with [facility] after discharge.
Benign Hypertension
-Blood pressure improved.
�- BP on the lower side in the ED - likely secondary to sepsis.
�- IVF support as noted above. Stopped IV fluids and monitor blood pressure
�- Hold antihypertensive medications acutely and resume when appropriate, hopefully over the next 24 hours.
DM-II
�- Stable.� Continua basal : bolus insulin regimen.
�- SSI coverage as needed.
�- Update A1C.
COPD with mild Acute Exacerbation
�-Short course of oral steroids for 5 days without taper.
�- Continue inhaled medications and follow for any changes.
Hypoxemic Respiratory Insufficiency
�- Noted to be hypoxemic in the ED and not on chronic home O2.
�- Unclear etiology - perhaps related to atelectasis / sepsis / etc.
�- Continue supplemental O2 and follow for changes.
�- No evidence of COPD exac, acute pulmonary infection, etc.
DVT Prophylaxis:� Lovenox
Code Status:� Full
Anticipated Discharge: Within 24 hours
Subjective/Interval History
-
Date of Service: July 15, 2023
Patient is less short of breath today. Complains of dry cough. Overall weak. Remains afebrile
Objective Data
-
Labs:
Laboratory Results
07/15/23
06:43
Sodium 135
Potassium 4.1
Chloride 106
Carbon Dioxide 25
BUN 30 H
Creatinine 0.8
Glucose 203 H
Calcium 8.5
Vital Signs:
Vital Signs
Temp Pulse Resp BP Pulse Ox
97.5 F 70 20 162/85 98
07/15/23 07:00 07/15/23 07:59 07/15/23 07:59 07/15/23 07:00 07/15/23 07:59
I&O
07/14/23 07/15/23 07/16/23
06:59 06:59 06:59
Intake Total 2159 / 2159
Output Total 100 / 100
Balance 2059
Review of Systems
-
All other systems: Reviewed and negative
[2023-07-15] MEDS: FLOMAX 0.400000000000000022 MG PO (08:21)
[2023-07-15] MEDS: DELTASONE 40 MG PO (08:21)
[2023-07-15] MEDS: NEURONTIN 100 MG PO ×3 (08:21→22:21)
[2023-07-15] MEDS: COLACE 100 MG PO ×2 (08:21→19:35)
[2023-07-15] MEDS: NOVOLOG FLEXPEN-LOW RESISTANCE 2 UNITS SC (08:21)
[2023-07-15 11:00] VITALS: BP 147/79; BP 160/72; BP 167/90; PULSE 87; PULSE 90; PULSE 92
--- NOTE | 2023-07-15 12:00 | CM ---
Reviewed chart, patient seen by PT/OT and is functioning at baseline level of care. Patient would like to go home when medically stable.
Plan: Case management will continue to follow and assist with discharge planning. Patient will most likely return home when cleared.
[2023-07-15 12:17] LABS: Glucose - Point of Care 343 mg/dl (70-99)
[2023-07-15] MEDS: NOVOLOG FLEXPEN-LOW RESISTANCE 4 UNITS SC ×2 (12:29→17:34)
[2023-07-15 14:32] VITALS: BP 152/79; PULSE 79; O2SAT 98
[2023-07-15 15:00] VITALS: BP 146/83
[2023-07-15 17:25] LABS: Glucose - Point of Care 328 mg/dl (70-99)
[2023-07-15] MEDS: LOVENOX 40 MG SC (17:34)
[2023-07-15 22:15] LABS: Glucose - Point of Care 339 mg/dl (70-99)
[2023-07-15] MEDS: LEVEMIR 0.100000000000000006 UNITS SC (22:21)
[2023-07-15] MEDS: STERILE WATER FOR INJECTION 10 ML IV (22:21)
[2023-07-15] MEDS: SENOKOT 17.1999999999999993 MG PO (22:21)
[2023-07-15] MEDS: ROCEPHIN 1000 MG IV (22:21)
[2023-07-15] MEDS: NOVOLOG FLEXPEN 4 UNITS SC (22:21)
[2023-07-15 23:41] VITALS: BP 145/73
[2023-07-16] MEDS: PULMICORT 0.5 MG INH (07:38)
[2023-07-16 07:48] VITALS: BP 139/69
[2023-07-16 07:58] LABS: Glucose - Point of Care 119 mg/dl (70-99)
[2023-07-16] MEDS: NOVOLOG FLEXPEN-LOW RESISTANCE SC (08:42)
[2023-07-16] MEDS: FLOMAX 0.400000000000000022 MG PO (08:43)
[2023-07-16] MEDS: DELTASONE 40 MG PO (08:43)
[2023-07-16] MEDS: COLACE 100 MG PO (08:43)
[2023-07-16] MEDS: NEURONTIN 100 MG PO (08:43)
--- NOTE | 2023-07-16 10:24 | W.PN.HOSP.TC ---
Today's Communication/Plan
-
Discharge planning today.
Assessment / Plan
Assessment / Plan
Physical Exam
General: No acute distress
HEENT: Moist mucous membranes and PERRLA
Respiratory: Other (Decreased throughout but improved airflow.� No crackles rhonchi or wheezes)
Cardiac: S1/S2 and Regular Rhythm; No Murmur
GI: Soft, Non Distended, Normal Bowel Sounds and Other (Pos tenderness R abdomen and suprapubic regions.� No rebound or guarding.� Pos BS.)
Musculoskeletal: No Clubbing, No Cyanosis and Other (Trace pedal edema bilaterally improved.)
Neuro: AO x 3
A/P:
UTI
Sepsis secondary to the above
�- Patient presents with fever, tachycardia, tachypnea and UA / symptoms indicative of UTI. WBC 7.7 last time.
�- IV abx of ceftriaxone and change to oral cefuroxime today. Urine culture with Klebsiella pneumonia.
�-Stopped IV fluids on 07/13
�- Follow for clinical improvement.
�- Follow bladder scan and cath if necessary.
�-Continue tamsulosin.
�- Checked renal / bladder US
-Updated daughter over the phone
Shortness of breath likely related to mild volume overload due to IV fluid, acute diastolic congestive heart failure and COPD exacerbation
-Obtain a chest x-ray today--> reviewed chest x-ray.
-Lasix 40 mg IV x 1 yesterday.
-Off IV fluids
-Switch IV steroids to oral steroids today
Liposarcoma
�- s/p 2 separate excisions and currently maintained on chemotherapy managed at [place].
�- Last treatment was almost 28 days ago (next due this ).
�- Hold chemo acutely given sepsis / infection. He tells me the chemotherapy this week but needs to be postponed until recovery from acute infection.
�- Follow-up with [facility] after discharge.
Benign Hypertension
-Blood pressure improved.
�- BP on the lower side in the ED - likely secondary to sepsis.
�- IVF support as noted above. Stopped IV fluids and monitor blood pressure
�- Hold antihypertensive medications acutely and resume when appropriate, hopefully over the next 24 hours.
DM-II
�- Stable.� Continua basal : bolus insulin regimen.
�- SSI coverage as needed.
�- Update A1C.
COPD with mild Acute Exacerbation
�-Short course of oral steroids for 5 days without taper.
�- Continue inhaled medications and follow for any changes.
Hypoxemic Respiratory Insufficiency
�- Noted to be hypoxemic in the ED and not on chronic home O2.
�- Unclear etiology - perhaps related to atelectasis / sepsis / etc.
�- Continue supplemental O2 and follow for changes.
�- No evidence of COPD exac, acute pulmonary infection, etc.
DVT Prophylaxis:� Lovenox
Code Status:� Full
Anticipated Discharge: Today
Subjective/Interval History
-
Date of Service: July 16, 2023
Patient remains afebrile. Denies any shortness of breath. Remains on room air
Objective Data
-
Vital Signs:
Vital Signs
Temp Pulse Resp BP Pulse Ox
98 F 74 16 139/69 96
07/16/23 07:48 07/16/23 07:48 07/16/23 07:48 07/16/23 07:48 07/16/23 07:48
I&O
07/15/23 07/16/23 07/17/23
06:59 06:59 06:59
Intake Total 900 / 900
Balance 900 / 900
[2023-07-16] MEDS: CEFTIN 500 MG PO (11:36)
--- NOTE | 2023-07-16 12:45 | CM ---
Chart reviewed. Spoke with pt
Discussed PT recs - HH - declined
Reports has ride at d/c
Discussed IMM
Plan - home no needs
[2023-07-16 12:47] LABS: Glucose - Point of Care 300 mg/dl (70-99)
[2023-07-16] MEDS: NOVOLOG FLEXPEN-LOW RESISTANCE 4 UNITS SC (12:58)
--- NOTE | 2023-07-16 13:30 | W.DCSUMMARY ---
Discharge Summary
Discharge Data
Date of Admission: 07/12/23
Date of Discharge: 07/16/23
-
Pending Results: No
Hospital Course
Patient 77 years old with history of liposarcoma on chemotherapy as outpatient, hypertension, COPD, Guillain-[place]� influenza testing related, diabetes mellitus, rheumatoid fever, presented to the hospital with dysuria urgency frequency and found to
have sepsis due to urinary tract infection. He was given IV antibiotics and IV fluids.His urine culture ultimately grew Klebsiella pneumonia sensitive to cephalosporins. Blood cultures no growth. Patient course complicated with respiratory
insufficiency related to volume overload and COPD. He received IV steroids and IV Lasix. He improved substantially from respiratory standpoint. He was switched to oral steroids for only a short course without tapering. His chemotherapy needs to
be postponed and he will follow-up with oncology as outpatient for next chemotherapy. Otherwise, patient is hemodynamically and back to his baseline. He will be discharged in stable condition today.
Discharge duration: 35-minute
Discharge Plan
-
Patient Disposition: Home (Routine Discharge)
Discharge Diagnosis/Procedures: Urinary tract infection. Acute diastolic congestive heart failure. Chronic obstructive pulmonary disease with exacerbation. History of liposarcoma. Acute hypoxemic respiratory insufficiency.
Diet: Low Cholesterol
Activity: As tolerated
Driving Restrictions: As prior to admission
Blood Work: Please PCP to order CBC, BMP within 1 week.
Specialty Instructions: Weigh Daily- Call MD for wt gain/loss 3 lbs overnight/5 lbs in 1 week
Referrals:
Rama Huff MD [Family Provider] - in less than 1 week
Prescriptions:
New
prednisone 20 mg Tablet
40 mg PO DAILY 2 Days Qty: 4 0RF
cefuroxime axetil 500 mg Tablet
500 mg PO BID 5 Days Qty: 10 0RF
Continued
albuterol sulfate 2.5 mg /3 mL (0.083 %) Solution For Nebulization
2.5 mg INHALATION R Q4HPRN PRN (Reason: sob)
valsartan 80 mg Tablet
80 mg PO DAILY
amlodipine 2.5 mg Tablet
2.5 mg PO DAILY
acetaminophen [Tylenol Extra Strength] 500 mg Tablet
500 mg PO DAILYPRN PRN (Reason: mild pain)
carboxymethylcellulose sodium 0.5 % Drops
1 drp BOTH EYES QIDPRN PRN (Reason: dry eyes)
bisacodyl [Dulcolax (bisacodyl)] 5 mg Tablet,Delayed Release (Dr/Ec)
5 mg PO DAILYPRN PRN (Reason: constipation)
gabapentin 100 mg Capsule
100 mg PO TID
albuterol sulfate 90 mcg/actuation Hfa Aerosol Inhaler
2 puff INHALATION R Q4HPRN PRN (Reason: sob)
insulin aspart U-100 [Novolog FlexPen U-100 Insulin] 100 unit/mL (3 mL) Insulin Pen
0 - 16 sliding scale dose SC AC
Patient Comments:
04/15/2023, patient states that they use this medication on a sliding scale between 0-16 units depending on their BS during meals.
Levemir FlexPen 100 unit/mL (3 mL) Insulin Pen
14 unit SC HS
PreserVision AREDS-2 250-90-40-1 mg Capsule
1 tab PO BID
Trelegy Ellipta 100-62.5-25 mcg Blister With Device
1 inh INHALATION R BID
Discharge Orders:
Discharge Patient (As Directed); Ordered 07/16/23
Ordered By: Praful Hernandez
Discharge Date and Time
Discharge Date/Time: 07/16/23 14:32
== END 2023-07-16 14:32 | disposition home or self-care (01) | DRG 871 ==
LOC: 3 WEST ACU 20:00
PROVIDERS: Physician Assistant; ADMITTING PHYSICIAN Hospitalist; ATTENDING PHYSICIAN Hospitalist; EMERGENCY PHYSICIAN Emergency Medicine; FAMILY PHYSICIAN Internal Medicine
DX: A41.9 Sepsis, unspecified organism (principal); I50.31 Acute diastolic (congestive) heart failure; N39.0 Urinary tract infection, site not specified; J44.1 Chronic obstructive pulmonary disease with (acute) exacerbation; C49.9 Malignant neoplasm of connective and soft tissue, unspecified; B96.1 Klebsiella pneumoniae [K. pneumoniae] as the cause of diseases classified elsewhere; I11.0 Hypertensive heart disease with heart failure; R09.02 Hypoxemia; E11.9 Type 2 diabetes mellitus without complications; Z79.4 Long term (current) use of insulin
CPT/HCPCS: 71046; 76770; 80048; 80053; 81003; 81015; 82962; 83036; 83605; 83880; 85025; 85027; 87040; 87077; 87086; 87186; 87502; 87811; 93005; 93970; 94640; 96361; 96374; 97116; 97162; 97165; 99285

== ENCOUNTER → 2023-09-20 07:09 | Outpatient (REF) | payer OTHER, SELFPAY ==
[2023-09-20 11:06] LABS: Glucose 148 mg/dl (70-99)
[2023-09-21 15:45] LABS: C-Peptide 0.8 ng/mL (0.5-3.3)
== END ==
LOC: HWLAB 07:09
PROVIDERS: ATTENDING PHYSICIAN Physician Assistant; FAMILY PHYSICIAN Internal Medicine
DX: E11.65 Type 2 diabetes mellitus with hyperglycemia (principal)
CPT/HCPCS: 36415; 82947; 84681

== ENCOUNTER 2023-12-05 18:42 | Inpatient (IN) | payer OTHER, SELFPAY ==
[2023-12-05] VITALS (9 sets, daily range): BP systolic 136–177; BP diastolic 66–94; BMI 25.1
[2023-12-05 16:06] LABS: COVID-19 Antigen Negative (Negative)
[2023-12-05] MEDS: DUONEB 9 ML INH (16:16)
[2023-12-05] MEDS: SOLU-MEDROL PF 125 MG IV (16:17)
[2023-12-05 16:35] LABS: % Basophils 0.9 % (0-2); % Eosinophils 2.1 % (0-6); % Immature Granulocytes 0.5 % (0-0.5); % Lymphocytes 16.1 % (20.5-51.1); % Monocytes 16.3 % (1.7-9.3); % Neutrophils 64.1 % (42.2-75.2); Absolute Eosinophils 0.1 10^3/uL (0-0.7); Absolute Lymphocytes 0.7 10^3/uL (1.2-3.4); Absolute Monocytes 0.7 10^3/uL (0.1-0.6); Absolute Neutrophils 2.8 10^3/uL (1.4-6.5); Hematocrit 31.8 % (39.0-52.0); Hemoglobin 11.3 g/dL (13.0-18.0); Mean Corp Hgb Conc. 35.5 g/dL (33.0-37.0); Mean Corpuscular Hgb 33.3 pg (27.0-31.0); Mean Corpuscular Volume 93.8 fL (80.0-94.0); Mean Platelet Volume 9.2 fL (7.4-10.4); Nucleated Red Blood Cells % 0 % (-); Platelet Count 159 10^3/uL (130-400); Red Blood Cell Count 3.39 10^6/uL (4.70-6.10); Red Cell Dist. Width 14.1 % (11.5-14.5); White Blood Cell Count 4.4 10^3/uL (4.8-10.8)
--- NOTE | 2023-12-05 16:46 | ED.GENMED ---
History of Present Illness
General
Chief Complaint: Cough
Time Seen by Provider: 12/05/23 15:31
History of Present Illness
History of Present Illness:
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 Patient reports symptoms for the past 3 days. His partner at home also has a cough
and similar symptoms. He reports increased wheezing. Cough has been productive. Notes chills, however is also a chemotherapy so is unsure if chills were related to the chemotherapy. Reports last chemotherapy session was a week ago, is seen at
[place]. Denies abdominal pain or GI symptoms. He is not on home oxygen. Reports tightness in his chest secondary to his breathing. Denies additional acute medical complaints.
Past History
Past History
ED Past Medical History: Cancer, HTN, IDDM and Other (Sarcoma high blood pressure rheumatic fever DM Astudillo�)
ED Past Surgical History: Appendectomy and Other
Social History
Tobacco: Former smoker
Alcohol: Occasional
Drug: None
Personal:
Living: with family
Employment: Retired
Family History
Family History: Other (CAD, hypertension, diabetes)
Phy Exam
Physical Exam
Physical Exam:
General: Well-appearing, no clinical signs of dehydration, nontoxic and in no acute distress
HEENT: protecting airway
Neck: appears supple
CV: Normal heart rate, regular rhythm, no evidence of cyanosis
Resp: Mild tachypnea, diffuse rhonchorous breath sounds with wheezing
Abd: Soft and non-distended, no tenderness to palpation, normal bowel sounds
Extremities: No deformities, no swelling, no erythema, pulses and sensation intact
Neuro: alert, no focal neurologic deficit
: deferred
Rectal: deferred
Psych: Normal affect
Skin: Intact
Course
Orders/Labs/Results
Orders:
Orders
12/05/23 14:50
ECG [Electrocardiogram (*1)] Urgent
Reason for Study: Chest Pain
EKG- Treatment ONCE
12/05/23 15:37
COVID-19 Antigen Urgent
Source: Nasal Swab
12/05/23 16:09
Ipratropium/Albuterol Sulfate [Duoneb] 9 ml INH R NOW STA
MethylPREDNISolone PF [Solu-Medrol Pf] 125 mg IV NOW STA
CR Chest - 2 Views Urgent
Comment:
Reason For Exam: cough
12/05/23 16:29
Basic Metabolic Panel Urgent
CBC/With Diff [Complete Blood Count/With Diff] Urgent
Troponin I Urgent
Abnormal Lab Results
12/05/23
16:29
WBC 4.4 L 10^3/uL
(4.8-10.8)
RBC 3.39 L 10^6/uL
(4.70-6.10)
Hgb 11.3 L g/dL
(13.0-18.0)
Hct 31.8 L %
(39.0-52.0)
MCH 33.3 H pg
(27.0-31.0)
Absolute Lymphs (auto) 0.7 L 10^3/uL
(1.2-3.4)
Absolute Monos (auto) 0.7 H 10^3/uL
(0.1-0.6)
Lymphocytes % 16.1 L %
(20.5-51.1)
Monocytes % 16.3 H %
(1.7-9.3)
BUN 27 H mg/dl
(9-20)
Glucose 168 H mg/dl
(70-99)
12/05/23 16:29
12/05/23 16:29
Vital Signs
Initial and Last Documented VS:
Initial Vital Signs
Temp Pulse Resp BP Pulse Ox
98.3 F 71 18 160/69 94
12/05/23 14:48 12/05/23 14:48 12/05/23 14:48 12/05/23 14:48 12/05/23 14:48
Last Documented Vital Signs
Temp Pulse Resp BP Pulse Ox
98.3 F 68 15 151/77 98
12/05/23 14:48 12/05/23 15:36 12/05/23 15:36 12/05/23 15:35 12/05/23 15:40
MDM/Problems Addressed
MDM/Problems Addressed:
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 Vital signs on arrival are normal.
On exam, patient in no acute respiratory distress. Mild increased work of breathing. Diffuse rhonchorous breath sounds with wheezing. Symptoms appear consistent with COPD exacerbation, likely brought on by viral syndrome versus pneumonia.
Patient at increased risk for infection given active chemotherapy. No current fever or SIRS criteria. Plan for DuoNebs, steroids, chest x-ray imaging, COVID swab. EKG obtained, nonischemic without concern for ACS.
18:00 -patient's labs are relatively unremarkable. Chest x-ray without acute cardiopulmonary disease. COVID-negative. On reassessment, patient minimally improved, remains very tight, diffusely wheezing. High risk for decompensation. Feel
warrants admission for COPD exacerbation. Patient agreeable plan
*EKG
Interpreted by ED Provider?: Yes
EKG Intrepretation Date: 12/05/23
EKG Intrepretation Time: 16:49
Interpretation: normal
Comparison EKG: no changes
Heart Rate: 69
Rate: normal
Rhythm: sinus
Interval: normal interval
QRS Pattern: normal QRS
Ischemia: no ischemia
*Critical Care Note
Total Time (30-74mins, 75-104mins- exclusive of procedures): Not Applicable
ED Attending Note
-
Portions of this chart may have been created with voice recognition software.� Occasional wrong word or��sound alike� substitutions may have occurred due to the inherent limitations of voice recognition software.
Discharge Plan
Departure
Prescriptions:
No Action
albuterol sulfate 2.5 mg /3 mL (0.083 %) Solution For Nebulization
2.5 mg INHALATION R Q4HPRN PRN (Reason: sob)
valsartan 80 mg Tablet
80 mg PO DAILY
amlodipine 2.5 mg Tablet
2.5 mg PO DAILY
acetaminophen [Tylenol Extra Strength] 500 mg Tablet
500 mg PO DAILYPRN PRN (Reason: mild pain)
carboxymethylcellulose sodium 0.5 % Drops
1 drp BOTH EYES QIDPRN PRN (Reason: dry eyes)
bisacodyl [Dulcolax (bisacodyl)] 5 mg Tablet,Delayed Release (Dr/Ec)
5 mg PO DAILYPRN PRN (Reason: constipation)
gabapentin 100 mg Capsule
100 mg PO TID
albuterol sulfate 90 mcg/actuation Hfa Aerosol Inhaler
2 puff INHALATION R Q4HPRN PRN (Reason: sob)
insulin aspart U-100 [Novolog FlexPen U-100 Insulin] 100 unit/mL (3 mL) Insulin Pen
0 - 16 sliding scale dose SC AC
Patient Comments:
04/15/2023, patient states that they use this medication on a sliding scale between 0-16 units depending on their BS during meals.
Levemir FlexPen 100 unit/mL (3 mL) Insulin Pen
14 unit SC HS
PreserVision AREDS-2 250-90-40-1 mg Capsule
1 tab PO BID
Trelegy Ellipta 100-62.5-25 mcg Blister With Device
1 inh INHALATION R BID
prednisone 20 mg Tablet
40 mg PO DAILY 2 Days Qty: 4 0RF
cefuroxime axetil 500 mg Tablet
500 mg PO BID 5 Days Qty: 10 0RF
Referrals:
Rama Huff MD [Family Provider] -
Interventions
Interventions:
*Risk Screen - Suicide Last Done: 12/05/23 14:48
*General Assessment Last Done: 12/05/23 14:48
*Neglect/Abuse Screening Last Done: 12/05/23 14:48
ED- Fall Risk Assessment Last Done: 12/05/23 15:40
ED- Pulmonary Assessment Last Done: 12/05/23 15:40
Discharge Date and Time
Print Language: BENGALI
[2023-12-05 16:56] LABS: Blood Urea Nitrogen 27 mg/dl (9-20); Calcium 9.9 mg/dl (8.4-10.2); Carbon Dioxide 25 mmol/L (22-30); Chloride 106 mmol/L (98-107); Glucose 168 mg/dl (70-99); Sodium 139 mmol/L (135-145); eGFR > 60.00
[2023-12-05 16:58] LABS: Troponin I < 0.012 ng/ml
--- NOTE | 2023-12-05 18:19 | HPS.HSE ---
Family Physician
-
Family Physician: Rama Huff
Chief Complaint
-
sob wheezing chills
History of Present Illness
77-year-old male with cough wheezing sob x3 days. last chemo was 1 week ago at [facility] for liposarcoma. He reports chills but denies fever, cp, palpitations, abd pain , nausea vomiting or diarrhea
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
Medical History
Past Medical History
Past Medical History: Reports Other
Additional Past Medical History:
Liposarcoma
Hypertension
COPD
Guillain-[place] (s/p influenza vaccine)
DM-II
Rheumatic Fever (childhood)
Past Surgical History: Reports Other
Additional Past Surgical History:
Liposarcoma excisions (L buttock, L lower ribs)
Appendectomy
Social History
Tobacco: Former Smoker (Quit smoking about 20 years ago. Approx 30 pack years total use.)
Alcohol: None
Drug: None
Family History
Family History: Not pertinent
Allergies / Home Medications
Allergies reflects when Allergies were last updated in [facility].
Home Medications with original date entered in [facility]
Allergy/Medication List:
Allergies
Allergy/AdvReac Type Severity Reaction Status Date / Time
Influenza Virus Vaccines Allergy Rash Verified 04/11/22 01:12
Penicillins Allergy Rash Verified 04/11/22 01:12
Home Medications
acetaminophen 500 mg tablet (Tylenol Extra Strength) 500 mg PO DAILYPRN PRN mild pain 04/15/23
albuterol sulfate 2.5 mg/3 mL (0.083 %) solution for nebulization 2.5 mg inhalation R Q4HPRN PRN sob 04/15/23
albuterol sulfate 90 mcg/actuation aerosol inhaler 2 puff inhalation R Q4HPRN PRN sob 04/15/23
amlodipine 2.5 mg tablet 2.5 mg PO DAILY Blood Pressure 04/15/23
bisacodyl 5 mg tablet,delayed release (Dulcolax (bisacodyl)) 5 mg PO DAILYPRN PRN constipation 04/15/23
carboxymethylcellulose sodium 0.5 % eye drops 1 drp BOTH EYES QIDPRN PRN dry eyes 04/15/23
fluticasone fur. 100 mcg-umeclid 62.5 mcg-vilant 25 mcg inhalat.powder (Trelegy Ellipta) 1 inh inhalation R BID Lung/Breathing Issues 04/15/23
gabapentin 100 mg capsule 100 mg PO TID Pain 04/15/23
insulin aspart U-100 100 unit/mL (3 mL) subcutaneous pen (Novolog FlexPen U-100 Insulin aspart) 0 - 16 sliding scale dose SC AC diabetes 04/15/23
insulin detemir U-100 100 unit/mL (3 mL) subcutaneous pen (Levemir FlexPen) 14 unit SC HS diabetes 04/15/23
valsartan 80 mg tablet 80 mg PO DAILY Blood Pressure 04/15/23
vit C 250 mg-vit E 90 mg-zinc 40 mg-copper 1 ca-elvcil-ihisqu capsule (PreserVision AREDS-2) 1 tab PO BID Eye Condition 04/15/23
Review of Systems
-
History Source: Patient
A 12 point ROS was completed and negative except as noted: Yes
Constitutional: Denies Fever or Chills
EENT: Denies Sore Throat or Runny Nose
Respiratory: Reports Cough and Trouble Breathing (wheezing )
Cardiac: Denies Chest Pain, Palpitations or Syncope
Abdomen/GI: Denies Abdominal Pain, Nausea, Vomiting or Diarrhea
: Denies Dysuria, Frequency, Flank Pain or Incontinence
Musculoskeletal: Denies Joint Pain or Edema
Skin: Denies Itching or Rash
Neurological: Denies Dizzy or Headache
Endocrine: Reports No Symptoms
Hematologic/Lymphatic: Reports No Symptoms
Psych: Reports Calm
Physical Exam
Vital Signs
Vital Signs
Temp Pulse Resp BP Pulse Ox
98.3 F 101 16 168/73 94
12/05/23 14:48 12/05/23 18:15 12/05/23 18:15 12/05/23 18:00 12/05/23 17:45
Physical Exam
General: Comfortable and Conversant
HEENT: NormoCephalic, Anicteric, No Ptosis and Other (scleral icterus)
Respiratory: Wheezes
Cardiac: S1/S2 and Regular Rhythm; No Murmur, Rub, Gallop or Peripheral Edema
GI: Soft, Non Tender, Non Distended, Normal Bowel Sounds and No Hepatosplenomegaly
Rectal: Deferred by Provider
Genito-urinary: Deferred by me
Musculoskeletal: No Clubbing, No Cyanosis and No Edema
Skin: Warm and Dry; No Rash
Neuro: No Motor Deficits and Nonfocal/grossly intact; No Slurred Speech, Facial Droop or Tremors
Psych: Calm
Laboratory Results
-
12/05/23 16:29
12/05/23 16:29
Laboratory Results
Total Bilirubin Cancelled 12/05/23 16:29
AST Cancelled 12/05/23 16:29
ALT Cancelled 12/05/23 16:29
Alkaline Phosphatase Cancelled 12/05/23 16:29
Troponin I < 0.012 ng/ml 12/05/23 16:29
Impression/Plan
-
Impression/Plan:
admit to Med surg
Acute on chronic Copd Exacerbation:
94 % RA
cont Duo Levalbuterol nebs daria and qid prn
- pt given Solumedrol 125mg in er
will cont decadron 4mg Iv q12h
-Zithromax 500 mg daily x3 days
-mucinex 600 mg bid
CXR: No acute cardiopulmonary process. Chronic obstructive pulmonary disease.
#Scleral icterus
will check lft panel
#Liposarcoma hx
- s/p 2 separate excisions and currently maintained on chemotherapy managed at [facility].
- had chemo 1 week ago
#Benign Hypertension
- 168/83
- cont
-.
#DM-II
- cont levemir and SSI insuin
- accucheck , check [id number]
#Guillain-[place] (s/p influenza vaccine) hx
DVT Prophylaxis: Lovenox
Code Status: Full
[2023-12-05] MEDS: VENTOLIN NEBULES 2.5 MG INH (18:21)
--- NOTE | 2023-12-05 18:35 | W.PN.UPDATE ---
Update Note
Progress Note Update
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 He was admitted for COPD exacerbation.
A/P:
# COPD Exacerbation
COVID neg
Cont Duo nebs with Levalbuterol ATC and PRN
Cont Decadron 4 mg IV Q12H
Zithromax 500 mg daily x3 days
mucinex 600 mg bid
# h/o Liposarcoma
s/p 2 separate excisions and currently maintained on chemotherapy managed at [facility].
had chemo 1 week ago [employer]
Pt follows at [facility]
# Benign Hypertension
Cont home meds with holding parameter
# DM-II
cont levemir
cover with SSI
check [id number]
# Guillain-[place] (s/p influenza vaccine) hx
DVT Prophylaxis: Lovenox
Code Status: Full
--- NOTE | 2023-12-05 19:40 | PTCARENOTE ---
Received pt from ED via stretcher. Pt ambulated to room independently. AAOx3. Blood pressure elevated, will recheck. No complaints of pain. Assessed and oriented to room. Pt verbalized understanding of call albright. Call albright within close reach. Will
continue to monitor.
[2023-12-05] MEDS: ATROVENT NEBULES 0.5 MG INH (19:45)
[2023-12-05] MEDS: XOPENEX 1.25 MG INHALANT SOLUTION INH (19:45)
[2023-12-05] MEDS: SYMBICORT 80/4.5 MCG INHALER 2 PUFF INH (19:58)
[2023-12-05 21:08] LABS: ALT (SGPT) 18 U/L (0-50); AST (SGOT) 28 U/L (17-59); Alkaline Phosphatase 162 U/L (38-126); Direct Bilirubin 0.1 mg/dl (0.0-0.4); Total Bilirubin 0.9 mg/dl (0.2-1.3); Total Protein 6.4 g/dl (6.3-8.2)
[2023-12-05 21:26] LABS: Glucose - Point of Care 314 mg/dl (70-99)
[2023-12-05] MEDS: LANTUS 0.14 UNITS SC (22:32)
[2023-12-05] MEDS: NEURONTIN 100 MG PO (22:33)
[2023-12-05] MEDS: MUCINEX 600 MG PO (22:33)
[2023-12-06 06:48] LABS: % Basophils 0.2 % (0-2); % Immature Granulocytes 0.7 % (0-0.5); % Lymphocytes 8.7 % (20.5-51.1); % Monocytes 4.7 % (1.7-9.3); % Neutrophils 85.7 % (42.2-75.2); Absolute Lymphocytes 0.4 10^3/uL (1.2-3.4); Absolute Monocytes 0.2 10^3/uL (0.1-0.6); Absolute Neutrophils 3.7 10^3/uL (1.4-6.5); Hematocrit 30.9 % (39.0-52.0); Hemoglobin 11.2 g/dL (13.0-18.0); Mean Corp Hgb Conc. 36.2 g/dL (33.0-37.0); Mean Corpuscular Hgb 33.5 pg (27.0-31.0); Mean Corpuscular Volume 92.5 fL (80.0-94.0); Nucleated Red Blood Cells % 0 % (-); Platelet Count 143 10^3/uL (130-400); Red Blood Cell Count 3.34 10^6/uL (4.70-6.10); Red Cell Dist. Width 13.5 % (11.5-14.5); White Blood Cell Count 4.3 10^3/uL (4.8-10.8)
[2023-12-06 07:18] LABS: ALT (SGPT) 15 U/L (0-50); AST (SGOT) 25 U/L (17-59); Albumin 3.6 g/dl (3.5-5.0); Alkaline Phosphatase 123 U/L (38-126); Blood Urea Nitrogen 28 mg/dl (9-20); Calcium 10.2 mg/dl (8.4-10.2); Carbon Dioxide 25 mmol/L (22-30); Chloride 103 mmol/L (98-107); Estimated Creatinine Clearance 72 ml/min; Glucose 287 mg/dl (70-99); HDL Cholesterol 60 mg/dl; LDL Cholesterol, Calculated 117 mg/dl; Potassium 4.8 mmol/L (3.5-5.1); Sodium 137 mmol/L (135-145); Total Bilirubin 0.9 mg/dl (0.2-1.3); Total Cholesterol 188 mg/dl (50-199); Triglyceride 58 mg/dl (10-149); Very Low Density Lipoprotein 11 mg/dl (0-30); eGFR > 60.00
[2023-12-06 07:26] VITALS: BP 175/87
[2023-12-06] MEDS: ATROVENT NEBULES 0.5 MG INH ×2 (07:31→12:06)
[2023-12-06] MEDS: SPIRIVA RESPIMAT 2.5 MCG 2 PUFF INH (07:31)
[2023-12-06] MEDS: SYMBICORT 80/4.5 MCG INHALER 2 PUFF INH (07:31)
[2023-12-06] MEDS: XOPENEX 1.25 MG INHALANT SOLUTION INH ×2 (07:31→12:06)
[2023-12-06 07:37] LABS: Glucose - Point of Care 274 mg/dl (70-99)
[2023-12-06] MEDS: MUCINEX 600 MG PO (08:28)
[2023-12-06] MEDS: NEURONTIN 100 MG PO (08:28)
[2023-12-06] MEDS: OCUVITE SOFTGEL 1 CAP PO (08:28)
[2023-12-06] MEDS: NORVASC 2.5 MG PO (08:28)
[2023-12-06] MEDS: ZITHROMAX 500 MG PO (08:28)
[2023-12-06] MEDS: DIOVAN 80 MG PO (08:29)
[2023-12-06] MEDS: DECADRON 4 MG IV (08:29)
[2023-12-06 09:11] VITALS: PULSE 91; O2SAT 95
--- NOTE | 2023-12-06 11:02 | W.PN.HOSP.TC ---
Addendum entered and electronically signed by Trudy Wan MD 12/06/23 13:10:
total DC time 35 min
Original Note:
Today's Communication/Plan
-
see A/P
Assessment / Plan
Assessment / Plan
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 He was admitted for COPD exacerbation.
A/P:
# COPD Exacerbation
COVID neg
Cont Duo nebs with Levalbuterol ATC and PRN
Decadron 4 mg IV Q12H -> prednisone 40 mg x5 days
Zithromax 500 mg daily x3 days
mucinex 600 mg bid
Check walking pulse Ox prior to discharge
# h/o Liposarcoma
s/p 2 separate excisions and currently maintained on chemotherapy managed at [facility].
had chemo 1 week ago [employer]
Pt follows at [facility]
# L flank/lumbar area pain, chronic per pt
start lidocaine patch
# Benign Hypertension
Cont home meds with holding parameter
# DM-II
cont levemir
cover with SSI
# Guillain-[place] (s/p influenza vaccine) hx
DVT Prophylaxis: Lovenox
Code Status: Full
DW RN
updated on the phone
Anticipated Discharge: Within 24 hours
Subjective/Interval History
-
Date of Service: December 06, 2023
Objective Data
-
Labs:
Laboratory Results
12/06/23
06:32
WBC 4.3 L
Hgb 11.2 L
Hct 30.9 L
Plt Count 143
Sodium 137
Potassium 4.8
Chloride 103
Carbon Dioxide 25
BUN 28 H
Creatinine 0.8
Glucose 287 H
Calcium 10.2
Total Bilirubin 0.9
AST 25
ALT 15
Alkaline Phosphatase 123
Vital Signs:
Vital Signs
Temp Pulse Resp BP Pulse Ox
36.7 C 81 16 175/87 96
12/06/23 07:26 12/06/23 08:12 12/06/23 08:12 12/06/23 07:26 12/06/23 08:12
I&O
12/05/23 12/06/23 12/07/23
06:59 06:59 06:59
Intake Total 480 / 480
Output Total 200 / 200
Balance 280 / 280
Review of Systems
-
Musculoskeletal: Reports Other (L lumbar area pain, chronic)
Physical Exam
-
General: Well Developed, Well Nourished, No Apparent Distress, Comfortable and Conversant
HEENT: Normocephalic and Atraumatic
Respiratory: Clear to Auscultation and Non Labored Respirations; Negative Wheezes (resolved ) or Accessory Resp Muscle Use
Cardiac: Regular Rhythm and S1/S2
GI: Soft
Neuro: Awake and Alert
Psych: Calm and Intact Judgement/Insight
Data Reviewed
-
Labs: Labs Reviewed by me
[2023-12-06 11:20] VITALS: BP 159/87; PULSE 92; O2SAT 95
--- NOTE | 2023-12-06 11:53 | CM ---
Met with pt at bedside
Pt lives with his in a mobile home - 4 steps to enter
Independent, performs adl's, aids with professional programmer analyst
will transport home
DME - nebulizer
SNF - no hx
HH - past hx - [facility]
PCP - Dr Bharti Huff
Pharm - [facility]
PT/OT consult
Watch for home O2 needs
Plan - home no needs vs with home O2
[2023-12-06 11:59] LABS: Glucose - Point of Care 356 mg/dl (70-99)
[2023-12-06] MEDS: LIDOCAINE 4% PATCH 1 PATCH TOPICAL (12:48)
[2023-12-06] MEDS: NOVOLOG FLEXPEN-LOW RESISTANCE 5 UNITS SC (12:53)
--- NOTE | 2023-12-06 13:03 | W.DCSUMMARY ---
Discharge Summary
Discharge Data
Date of Admission: 12/05/23
Date of Discharge: 12/06/23
-
Pending Results: No
Hospital Course
Principal Diagnosis:
COPD Exacerbation
Chronic Diagnoses:�
Liposarcoma s/p 2 separate excisions and currently on chemotherapy, follows at [facility].
Chronic Left flank/lumbar area pain, possibly related to underlying liposarcoma, patient was started with lidocaine patch this admission
Benign Hypertension
Insulin-dependent diabetes
History of Quirino Astudillo� from flu vaccine
Consultations:�
None
Procedures:�
None
Clinical course:�
This is a 77-year-old male, with past medical history as stated above, who presented with shortness of breath and wheezing ongoing for few days.
He was admitted for COPD exacerbation.
Problem 1:
COPD Exacerbation.
This was treated with IV Decadron 4 mg every 12 hours while in the hospital, the patient was discharged with prednisone 40 mg daily for 5 more days.
He was also started with Zithromax 500 mg and can continue for 2 more doses following discharge for his COPD (total 3 doses/days).
He can also continue with Mucinex going forward.
His walking pulse ox did not show need for home oxygen therapy.
As for the rest of his medical problems, they were stable during his hospital stay.
Discharge Plan
-
Patient Disposition: Home with Home Care
Discharge Diagnosis/Procedures: COPD exacerbation; Liposarcoma; chronic Left sided lumbar pain
Condition: Fair
Diet: As tolerated and Diabetic, Carb Controlled
Activity: As tolerated
Driving Restrictions: As prior to admission
Referrals:
Rama Huff MD [Family Provider] - in less than 1 week
Additional Discharge Medication Instructions: Continue prednisone 40 mg x5 days
Take azithromycin for 2 more days
Prescriptions:
New
lidocaine 4 % Adhesive Patch,Medicated
1 patch topical DAILY Qty: 30 0RF
guaifenesin 600 mg Tablet Extended Release 12hr
600 mg PO Q12 Qty: 60 0RF
azithromycin 250 mg Tablet
500 mg PO DAILY 2 Days Qty: 4 0RF
prednisone 20 mg tablet
40 mg PO DAILY 5 Days Qty: 10 0RF
Continued
albuterol sulfate 2.5 mg /3 mL (0.083 %) Solution For Nebulization
2.5 mg INHALATION R Q4HPRN PRN (Reason: sob)
valsartan 80 mg Tablet
80 mg PO DAILY
amlodipine 2.5 mg Tablet
2.5 mg PO DAILY
acetaminophen [Tylenol Extra Strength] 500 mg Tablet
500 mg PO DAILYPRN PRN (Reason: mild pain)
carboxymethylcellulose sodium 0.5 % Drops
1 drp BOTH EYES QIDPRN PRN (Reason: dry eyes)
bisacodyl [Dulcolax (bisacodyl)] 5 mg Tablet,Delayed Release (Dr/Ec)
5 mg PO DAILYPRN PRN (Reason: constipation)
gabapentin 100 mg Capsule
100 mg PO TID
albuterol sulfate 90 mcg/actuation Hfa Aerosol Inhaler
2 puff INHALATION R Q4HPRN PRN (Reason: sob)
insulin aspart U-100 [Novolog FlexPen U-100 Insulin] 100 unit/mL (3 mL) Insulin Pen
0 - 16 sliding scale dose SC AC
Patient Comments:
04/15/2023, patient states that they use this medication on a sliding scale between 0-16 units depending on their BS during meals.
Levemir FlexPen 100 unit/mL (3 mL) Insulin Pen
14 unit SC HS
PreserVision AREDS-2 250-90-40-1 mg Capsule
1 tab PO BID
Trelegy Ellipta 100-62.5-25 mcg Blister With Device
1 inh INHALATION R DAILY
Discharge Orders:
Discharge Patient (As Directed); Ordered 12/06/23
Ordered By: Trudy Wan
Discharge Date and Time
Print Language: CZECH
== END 2023-12-06 14:09 | disposition home or self-care (01) | DRG 191 ==
LOC: 3 WEST ACU 18:42
PROVIDERS: Clinical Nurse Specialist Family Health; ADMITTING PHYSICIAN Internal Medicine; EMERGENCY PHYSICIAN Student in an Organized Health Care Education/Training Program; FAMILY PHYSICIAN Internal Medicine
DX: J44.1 Chronic obstructive pulmonary disease with (acute) exacerbation (principal); C49.9 Malignant neoplasm of connective and soft tissue, unspecified; Z87.891 Personal history of nicotine dependence; Z11.52 Encounter for screening for COVID-19; E11.9 Type 2 diabetes mellitus without complications; I10 Essential (primary) hypertension; Z79.4 Long term (current) use of insulin
CPT/HCPCS: 71046; 80048; 80053; 80061; 80076; 82962; 84484; 85025; 87811; 93005; 94640; 96374; 97162; 97166; 99285

== ENCOUNTER → 2024-05-25 12:30 | Outpatient (REF) | payer OTHER, SELFPAY ==
[2024-05-25 16:19] LABS: ALT (SGPT) 15 U/L (0-50); AST (SGOT) 24 U/L (17-59); Albumin 3.9 g/dl (3.5-5.0); Alkaline Phosphatase 134 U/L (38-126); Blood Urea Nitrogen 24 mg/dl (9-20); Calcium 8.9 mg/dl (8.4-10.2); Carbon Dioxide 29 mmol/L (22-30); Chloride 102 mmol/L (98-107); Glucose 154 mg/dl (70-99); HDL Cholesterol 60 mg/dl; LDL Cholesterol, Calculated 113 mg/dl; Sodium 138 mmol/L (135-145); Total Bilirubin 0.9 mg/dl (0.2-1.3); Total Cholesterol 189 mg/dl (50-199); Total Protein 6.5 g/dl (6.3-8.2); Triglyceride 82 mg/dl (10-149); Very Low Density Lipoprotein 16 mg/dl (0-30); eGFR > 60.00
[2024-05-25 16:33] LABS: % Basophils 0.7 % (0-2); % Immature Granulocytes 0.3 % (0-0.5); % Monocytes 11.6 % (1.7-9.3); % Neutrophils 69.4 % (42.2-75.2); Absolute Basophils 0.1 10^3/uL (0-0.2); Absolute Eosinophils 0.1 10^3/uL (0-0.7); Absolute Lymphocytes 1.2 10^3/uL (1.2-3.4); Absolute Monocytes 0.8 10^3/uL (0.1-0.6); Hematocrit 37.9 % (39.0-52.0); Hemoglobin 12.4 g/dL (13.0-18.0); Mean Corp Hgb Conc. 32.7 g/dL (33.0-37.0); Mean Corpuscular Hgb 32.3 pg (27.0-31.0); Mean Corpuscular Volume 98.7 fL (80.0-94.0); Mean Platelet Volume 9.4 fL (7.4-10.4); Nucleated Red Blood Cells % 0 % (-); Platelet Count 191 10^3/uL (130-400); Red Blood Cell Count 3.84 10^6/uL (4.70-6.10); White Blood Cell Count 7.2 10^3/uL (4.8-10.8)
[2024-05-26 09:48] LABS: Glycohemoglobin (HgbA1c) 5.8 % (4.0-5.6)
== END ==
LOC: HWLAB 12:30
PROVIDERS: ATTENDING PHYSICIAN Physician Assistant; FAMILY PHYSICIAN Internal Medicine; REFERRING PHYSICIAN Specialist
DX: E11.65 Type 2 diabetes mellitus with hyperglycemia (principal); C49.9 Malignant neoplasm of connective and soft tissue, unspecified; C79.51 Secondary malignant neoplasm of bone; J44.9 Chronic obstructive pulmonary disease, unspecified
CPT/HCPCS: 36415; 80053; 80061; 83036; 85025

== ENCOUNTER → 2024-11-06 11:55 | Outpatient (REF) | payer OTHER, SELFPAY ==
[2024-11-06 15:37] LABS: Urine Albumin 3+ (Neg - Trace); Urine Bilirubin Negative (Negative); Urine Character Clear (Clear); Urine Color Yellow; Urine Glucose Negative (Negative); Urine Ketone Negative (Negative); Urine Leukocyte Negative (Negative); Urine Nitrite Negative (Negative); Urine Occult Blood Negative (Negative); Urine Urobilinogen Negative (Neg - 1+)
[2024-11-06 15:48] LABS: Blood Urea Nitrogen 28 mg/dl (9-20); Calcium 8.9 mg/dl (8.4-10.2); Carbon Dioxide 27 mmol/L (22-30); Chloride 110 mmol/L (98-107); Glucose 87 mg/dl (70-99); Potassium 4.2 mmol/L (3.5-5.1); Sodium 142 mmol/L (135-145); eGFR > 60.00
[2024-11-06 16:17] LABS: PSA, Total - Screen 4.05 ng/ml (0.0-4.0)
[2024-11-06 17:23] LABS: Urine Red Blood Cell 0-2 /HPF (0-2)
[2024-11-06 17:24] LABS: Urine Bacteria Few (Negative)
[2024-11-07 08:30] LABS: Glycohemoglobin (HgbA1c) 5.8 % (4.0-5.6)
== END ==
LOC: HWLAB 11:55
PROVIDERS: ATTENDING PHYSICIAN Internal Medicine
DX: R35.1 Nocturia (principal); E11.9 Type 2 diabetes mellitus without complications; I10 Essential (primary) hypertension
CPT/HCPCS: 36415; 80048; 81003; 81015; 83036; 87086; G0103

== ENCOUNTER → 2024-12-26 13:00 | Outpatient (REF) | payer OTHER, SELFPAY | LOC: RAD 13:00 | PROVIDERS: ATTENDING PHYSICIAN Specialist; FAMILY PHYSICIAN Internal Medicine | DX: R60.0 Localized edema (principal) | CPT/HCPCS: 93970 ==

== ENCOUNTER → 2025-01-08 19:15 | Outpatient (REF) | payer OTHER, SELFPAY | LOC: MRI 3T 19:15 | PROVIDERS: ATTENDING PHYSICIAN Internal Medicine | DX: C79.89 Secondary malignant neoplasm of other specified sites (principal); R41.89 Other symptoms and signs involving cognitive functions and awareness; R41.3 Other amnesia | CPT/HCPCS: 70553; A9575 ==

== ENCOUNTER → 2025-02-08 06:59 | Outpatient (REF) | payer OTHER, SELFPAY ==
[2025-02-08 09:45] LABS: Hematocrit 33.8 % (39.0-52.0); Hemoglobin 11.4 g/dL (13.0-18.0); Mean Corp Hgb Conc. 33.7 g/dL (33.0-37.0); Mean Corpuscular Volume 93.6 fL (80.0-94.0); Nucleated Red Blood Cells % 0 % (-); Platelet Count 177 10^3/uL (130-400); Red Cell Dist. Width 12.3 % (11.5-14.5)
== END ==
LOC: HWRCS 06:59
PROVIDERS: ATTENDING PHYSICIAN Nurse Practitioner Family; FAMILY PHYSICIAN Internal Medicine
DX: R06.09 Other forms of dyspnea (principal)
CPT/HCPCS: 36415; 83880; 85025; 93306

== ENCOUNTER → 2025-03-05 13:08 | Outpatient (REF) | payer OTHER, SELFPAY ==
[2025-03-05 16:07] LABS: Blood Urea Nitrogen 42 mg/dl (9-20); Calcium 9.3 mg/dl (8.4-10.2); Carbon Dioxide 33 mmol/L (22-30); Chloride 106 mmol/L (98-107); Glucose 125 mg/dl (70-99); Potassium 3.5 mmol/L (3.5-5.1); Sodium 143 mmol/L (135-145); eGFR > 60.00
== END ==
LOC: HWLAB 13:08
PROVIDERS: ATTENDING PHYSICIAN Internal Medicine Cardiovascular Disease; FAMILY PHYSICIAN Internal Medicine
DX: R60.0 Localized edema (principal)
CPT/HCPCS: 36415; 80048